=== PATIENT | female | born 1970 | race Caucasian/White ===

== ENCOUNTER 2017-12-19 13:37 | Inpatient (IN) | payer BC ==
[2017-12-19] MEDS ORDERED: MORPHINE SULFATE 2 MG INJ IV ONE (13:55)
[2017-12-19] MEDS ORDERED: Lomotil PO ONE (13:56)
[2017-12-19] MEDS ORDERED: Sodium Chloride 0.9% 1000 ML 1,000 ML IV SCH (14:00)
[2017-12-19] MEDS ORDERED: Lomotil ONE (14:03)
[2017-12-19] MEDS ORDERED: Sodium Chloride 0.9% 1000 ML 0 ML ONE (14:04)
[2017-12-19] MEDS ORDERED: MORPHINE SULFATE 2 MG INJ ONE (14:04)
[2017-12-19 14:09] LABS: BASOPHIL % 0.4 % (0.0-0.4); Basophil (Absolute #) 0.06 (0-0.4); Eosinophil % 1.8 % (0.00-5.0); Eosinophil (Absolute #) 0.26 (0-0.5); Granulocyte Absolute (ANC) 9.11 (1.4-6.9); Granulocytes % 63.5 % (36.0-66.0); Hematocrit 31.3 % (35-47); Hemoglobin 10.5 gm/dl (12.0-16.0); Lymphocyte (Absolute #) 3.76 (1.0-4.6); Lymphocytes % 26.2 % (24.0-44.0); Mean Corpuscular Hemoglobin 28.8 pg (26-32); Mean Corpuscular Hgb Concent. 33.5 g/dl (32-36); Mean Platelet Volume 9.7 fl (6-9.5); Monocyte (Absolute #) 1.16 (0.0-1.3); Monocytes % 8.1 % (0.0-12.0); Platelet Count 625 K/mm3 (150-450); Red Blood Count 3.64 M/mm3 (4.1-5.4); Red Cell Distribution Width 14.2 % (11.5-14.0); White Blood Count 14.4 K/mm3 (4.0-10.5)
--- NOTE | 2017-12-19 14:10 | ERPHSYRPT ---
- History of Present Illness Time Seen by Provider: 12/19/17 13:40 Source: patient, family Exam Limitations: no limitations Patient Subjective Stated Complaint: Pt states "I am on doxycycline again for lyme disease and I am swelling really bad and I am having horrible diarrhea. I called my family doctor and she told me to just come to the ER and get evaluated for admission." Triage Nursing Assessment: Pt alert and oriented X 3, skin pwd. PT has right leg amputaion and uses a wheeled scooter for ambulating. Pt face is swollen, arms and hands has swelling, stump is swelling. No apparent respiratory distress. Physician History: patient developed diffuse swelling while on Vibramycin being treated for Lyme disease starting in May 2017; Swelling imporved after a time. Was on Nystatin too. Stopped meds in October as improved. Symptoms of lyme disease returned at end of November so restarted Vibramycin last week of November but not the Nystatin. Swelling returned after two days on the Vibramycin and has persisted. About the same time she developed frequent loose mushy diarrhea. no blood. a small 1- 2 cup stool every 30-45 minutes; no fever or chills; no travel or exposures; no prior hx. 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 Voiding ok; Breathin ok; some mild abdominal discomfort, but no pain Timing/Duration: week(s) (1), intermittent, gradual onset, worse Severity: severe Modifying Factors: Improves With: nothing Associated Symptoms: weakness, other (diarrhea only) Allergies/Adverse Reactions: levofloxacin [From Levaquin] Allergy (Verified 06/15/12 20:40) Home Medications: Ascorbic Acid 500 mg [Vitamin C 500 MG] 500 mg PO .UNKNOWN 07/12/16 [ History] Ergocalciferol (Vitamin D2) [Vitamin D2] 50,000 unit PO Q7D 07/12/16 [History] Hydrocodone/APAP 10/325 mg [[place] 10/325 MG Tablet] 1 tab PO Q4H PRN PRN 07/12/16 [History] Insulin Aspart [Novolog Flexpen] 0 unit SQ .PRN 07/12/16 [History] Insulin Glargine,Hum.rec.anlog [Toujeo Solostar] 10 unit SQ HS 07/12/16 [History ] Multivitamin [Multivitamins] 1 each PO BID 07/12/16 [History] Omeprazole 20 MG [Prilosec 20 mg] 20 mg PO BID 07/12/16 [History] Dextroamphetamine/Amphetamine [Adderall 20 mg Tablet] 20 mg PO DAILY 12/19/17 [ History] Furosemide 20 mg [Lasix 20 mg] 20 mg PO DAILY 12/19/17 [History] Hx Tetanus, Diphtheria Vaccination/Date Given: No Hx Influenza Vaccination/Date Given: Yes Hx Pneumococcal Vaccination/Date Given: No Immunizations Up to Date: Yes - Review of Systems Constitutional: Malaise, Weakness Eyes: No Symptoms Ears, Nose, & Throat: No Symptoms Respiratory: No Cough, No Dyspnea, No Wheezing Cardiac: Edema, No Chest Pain, No Palpitations, No Syncope Abdominal/Gastrointestinal: Diarrhea, No Abdominal Pain, No Nausea, No Vomiting , No Constipation, No Hematemesis, No Hematochezia, No Melena Genitourinary Symptoms: No Symptoms Musculoskeletal: No Symptoms Skin: No Symptoms Neurological: No Symptoms Psychological: No Symptoms Endocrine: No Symptoms Hematologic/Lymphatic: No Symptoms Immunological/Allergic: No Symptoms - Past Medical History Pertinent Past Medical History: Yes Neurological History: No Pertinent History Endocrine Medical History: Diabetes Type I, Hypothyroidism - Past Surgical History Past Surgical History: Yes Musculoskeletal: Orthopedic Surgery Female Surgical History: Section, Tubal Ligation Other Surgical History: BARIATRIC SURGERY,FOOT SURGERY, RETINA SURGERY, amputation of right leg just below the knee. - Social History Smoking Status: Never smoker Exposure to second hand smoke: No Alcohol Use: None Drug Use: none Patient Lives Alone: No Significant Family History: diabetes - Female History Hx Last Menstrual Period: 2010 ablasion Hx Now: No - Nursing Vital Signs Nursing Vital Signs: Initial Vital Signs Temperature 98.1 F 12/19/17 13:42 Pulse Rate 106 H 12/19/17 13:42 Respiratory Rate 18 12/19/17 13:42 Blood Pressure 169/98 12/19/17 13:42 O2 Sat by Pulse Oximetry 99 12/19/17 13:42 Pain Scale Pain Intensity 0 - Physical Exam General Appearance: moderate distress, alert Eye Exam: PERRL/EOMI, eyes nml inspection, other (pale conjunctiva) Ears, Nose, Throat Exam: normal ENT inspection, TMs normal, pharynx normal, moist mucous membranes Neck Exam: normal inspection, non-tender, supple, full range of motion, No meningismus, No JVD Respiratory Exam: normal breath sounds, lungs clear, airway intact, No chest tenderness, No respiratory distress, No crackles/rales, No rhonchi, No wheezing Cardiovascular Exam: regular rate/rhythm, normal heart sounds, normal peripheral pulses, tachycardia (106), capillary refill <2 sec, edema, No murmur Gastrointestinal/Abdomen Exam: soft, normal bowel sounds, No tenderness, No distention, No mass, No guarding, No rebound, No organomegaly Pelvic Exam: not done Rectal Exam: normal exam, normal rectal tone, other (small amount greyish soft stool), No mass, No hemorrhoids, No black stool, No blood Back Exam: normal inspection, normal range of motion, No CVA tenderness, No rash Extremity Exam: normal inspection, normal range of motion, pedal edema, swelling (hands and face), other (DK amputation rle), No nathaniel's sign Neurologic Exam: alert, oriented x 3, cooperative, hotel clerk II-XII nml as tested, normal mood/affect Skin Exam: normal color, warm, dry, No rash, No petechiae, No jaundice, No cyanosis SpO2 Interpretation: normal SpO2: 99 Oxygen Delivery: Room Air - Course Nursing assessment & vital signs reviewed: Yes - Radiology Exams Chest X-ray Interpretation: Interpreted by me, Negative, No Pneumonia, No Pneumothorax , Nml Heart Size, No Infiltrates Ordered Tests: Active Orders 24 hr Category Date Time Status Up With Assistance ROUTINE Activity 12/19/17 15:53 Ordered Call Admit Doctor for Orders ON ADMISSION Care 12/19/17 15:55 Ordered Code Status Order ROUTINE Care 12/19/17 15:53 Ordered Fall Protocol ROUTINE Care 12/19/17 15:55 Ordered IV Care Q6H Care 12/19/17 15:53 Ordered IV Insertion STAT Care 12/19/17 13:55 Active NPO (ED) STAT Care 12/19/17 13:[address] in Observation ROUTINE Care 12/19/17 15:54 Ordered Re-Check Vital Signs STAT Care 12/19/17 13:55 Active Luis Menchaca, Gordon ROUTINE Care 12/19/17 15:53 Ordered Weight,Daily 0600 Care 12/19/17 15:53 Ordered 1800 Calorie ADA Diet 12/19/17 Dinner Ordered CHEST 1 VIEW (PORTABLE) Stat Exams 12/19/17 15:43 Taken CBC W DIFF Stat Lab 12/19/17 14:00 Completed CMP Stat Lab 12/19/17 14:00 Completed Occult Blood,Stool Other Stat Lab 12/19/17 14:20 Completed Transfer Order Routine Transfer 12/19/17 Ordered Medication Summary Generic Name Dose Route Start Last Admin Trade Name Freq PRN Reason Stop Dose Admin Sodium Chloride 1,000 mls @ 100 mls/hr 12/19/17 14:00 Sodium Chloride 0.9% 1000 Ml IV 01/18/18 13:59 .Q10H CHARI Lactated Ringer's 1,000 mls @ 100 mls/hr 12/19/17 14:30 12/19/17 14:27 Lactated Ringers IV 01/18/18 14:29 100 mls/hr .Q10H CHARI Administration Discontinued Medications Generic Name Dose Route Start Last Admin Trade Name Freq PRN Reason Stop Dose Admin Diphenoxylate HCl/Atropine 1 tablet 12/19/17 13:56 12/19/17 14:20 Lomotil PO 12/19/17 13:57 1 tablet STAT ONE Administration Diphenoxylate HCl/Atropine Confirm 12/19/17 14:03 Lomotil Administered 12/19/17 14:04 Dose 1 tablet .ROUTE .STK-MED ONE Morphine Sulfate 2 mg 12/19/17 13:55 12/19/17 14:28 Morphine Sulfate 2 Mg Inj IV 12/19/17 13:56 2 mg STAT ONE Administration Morphine Sulfate Confirm 12/19/17 14:04 Morphine Sulfate 2 Mg Inj Administered 12/19/17 14:05 Dose 2 mg .ROUTE .STK-MED ONE Lab/Rad Data: Laboratory Result Diagrams 12/19/17 14:00 12/19/17 14:00 Laboratory Results 12/19/17 12/19/17 12/19/17 Range/Units 14:20 14:20 14:00 WBC (4.0-10.5) K/mm3 RBC (4.1-5.4) M/mm3 Hgb (12.0-16.0) gm/dl Hct (35-47) % MCV (78-100) fl MCH (26-32) pg MCHC (32-36) g/dl RDW (11.5-14.0) % Plt Count (150-450) K/mm3 MPV (6-9.5) fl Gran % (36.0-66.0) % Eos # (Auto) (0-0.5) Absolute Lymphs (auto) (1.0-4.6) Absolute Monos (auto) (0.0-1.3) Lymphocytes % (24.0-44.0) % Monocytes % (0.0-12.0) % Eosinophils % (0.00-5.0) % Basophils % (0.0-0.4) % Absolute Granulocytes (1.4-6.9) Basophils # (0-0.4) Sodium 137 (137-145) mmol/L Potassium 2.9 L* (3.5-5.1) mmol/L Chloride 100 (98-107) mmol/L Carbon Dioxide 31 H (22-30) mmol/L Anion Gap 9.0 (5-15) MEQ/L BUN 10 (7-17) mg/dL Creatinine 1.00 (0.52-1.04) mg/dL Estimated GFR > 60.0 ML/MIN Glucose 228 H (74-106) mg/dL Calcium 8.0 L (8.4-10.2) mg/dL Total Bilirubin 0.20 (0.2-1.3) mg/dL AST 24 (14-36) U/L ALT 36 H (0-35) U/L Alkaline Phosphatase 327 H (38-126) U/L Serum Total Protein 5.2 L (6.3-8.2) g/dL Albumin 2.0 L (3.5-5.0) g/dL Stool Occult Blood NEGATIVE (Negative) Stl C. diff Tox B Gene NEGATIVE (NEGATIVE) C.difficile 027-NAP1-B1 PRESUMPTIVE NEGATIVE (NEGATIVE) 12/19/17 Range/Units 14:00 WBC 14.4 H (4.0-10.5) K/mm3 RBC 3.64 L (4.1-5.4) M/mm3 Hgb 10.5 L (12.0-16.0) gm/dl Hct 31.3 L (35-47) % MCV 86.0 (78-100) fl MCH 28.8 (26-32) pg MCHC 33.5 (32-36) g/dl RDW 14.2 H (11.5-14.0) % Plt Count 625 H (150-450) K/mm3 MPV 9.7 H (6-9.5) fl Gran % 63.5 (36.0-66.0) % Eos # (Auto) 0.26 (0-0.5) Absolute Lymphs (auto) 3.76 (1.0-4.6) Absolute Monos (auto) 1.16 (0.0-1.3) Lymphocytes % 26.2 (24.0-44.0) % Monocytes % 8.1 (0.0-12.0) % Eosinophils % 1.8 (0.00-5.0) % Basophils % 0.4 (0.0-0.4) % Absolute Granulocytes 9.11 H (1.4-6.9) Basophils # 0.06 (0-0.4) Sodium (137-145) mmol/L Potassium (3.5-5.1) mmol/L Chloride (98-107) mmol/L Carbon Dioxide (22-30) mmol/L Anion Gap (5-15) MEQ/L BUN (7-17) mg/dL Creatinine (0.52-1.04) mg/dL Estimated GFR ML/MIN Glucose (74-106) mg/dL Calcium (8.4-10.2) mg/dL Total Bilirubin (0.2-1.3) mg/dL AST (14-36) U/L ALT (0-35) U/L Alkaline Phosphatase (38-126) U/L Serum Total Protein (6.3-8.2) g/dL Albumin (3.5-5.0) g/dL Stool Occult Blood (Negative) Stl C. diff Tox B Gene (NEGATIVE) C.difficile 027-NAP1-B1 (NEGATIVE) reviewed - Progress Progress: improved (clinically with meds and IV fluids), re-examined (after meds ) Progress Note: 12/19/17 14:15 will start IV, check labs, monitor and recheck 12/19/17 14:15 at bedsdie 12/19/17 15:49 family at bedside; feeling better; no more diarrhea; Dr Angela consulted and will admit to OBs; C diff neg; ; elevated wBC at 14; BS 228; lytes and renal fx ok except low K+ 2.9; On LR IV fluids for low K+;stool neg fro blood; patient and family informed of admission and results Discussed with Dr.: Angela (consulted and will be placed in OBS) Counseled pt/family regarding: lab results, diagnosis, need for follow-up, rad results - Departure Time of Disposition: 15:52 Departure Disposition: Observation Clinical Impression: Hypokalemic alkalosis due to diarrhea, Diarrhea due to drug, Medication reaction, Lyme disease Condition: Fair Critical Care Time: No Referrals: BERNARD ANGELA [Primary Care Provider] -
[2017-12-19] MEDS: Lactated Ringers 1,000 ML IV SCH ×2 (14:27→23:56)
[2017-12-19 14:29] LABS: ALKALINE PHOSPHATASE 327 U/L (38-126); BLOOD UREA NITROGEN 10 mg/dL (7-17); CHLORIDE 100 mmol/L (98-107); Carbon Dioxide 31 mmol/L (22-30); Glucose 228 mg/dL (74-106); SGOT/AST 24 U/L (14-36); SGPT/ALT 36 U/L (0-35); SODIUM 137 mmol/L (137-145); Total Protein 5.2 g/dL (6.3-8.2)
[2017-12-19 14:37] LABS: Potassium 2.9 mmol/L (3.5-5.1)
[2017-12-19 15:40] LABS: 027 TOX PROD PRESUMPTIVE NEGATIVE (NEGATIVE); TOXIGENIC C. DIFF ORG NEGATIVE (NEGATIVE)
--- NOTE | 2017-12-19 16:23 | XRAY ---
Indication: Fluid retention. Diarrhea. Comparison: June 15, 2012. Portable chest again demonstrates normal heart and lungs. Bony thorax intact. No new/acute findings.
[2017-12-19] MEDS ORDERED: K-LYTE 25 MEQ PO ONE (17:27)
[2017-12-19] MEDS: Norco 10/325 MG Tablet PO PRN (19:42)
[2017-12-19] MEDS: NovoLOG Insulin SQ PRN (21:16)
[2017-12-19] MEDS: Protonix 40MG Tablet PO SCH (21:16)
[2017-12-19 21:55] LABS: Potassium 3.9 mmol/L (3.5-5.1)
[2017-12-20] MEDS: NovoLOG Insulin SQ PRN ×4 (00:40→21:42)
[2017-12-20] MEDS: Norco 10/325 MG Tablet PO PRN ×5 (00:51→23:33)
[2017-12-20] MEDS: TYLENOL 325 MG PO PRN (02:56)
[2017-12-20 05:56] LABS: Hematocrit 26.5 % (35-47); Hemoglobin 8.8 gm/dl (12.0-16.0); Mean Cell Volume 86.6 fl (78-100); Mean Corpuscular Hgb Concent. 33.2 g/dl (32-36); Mean Platelet Volume 9.8 fl (6-9.5); Platelet Count 518 K/mm3 (150-450); Red Blood Count 3.06 M/mm3 (4.1-5.4); White Blood Count 9.8 K/mm3 (4.0-10.5)
[2017-12-20 06:11] LABS: ANION GAP 5.6 MEQ/L (5-15); BLOOD UREA NITROGEN 10 mg/dL (7-17); CHLORIDE 103 mmol/L (98-107); Calcium 7.7 mg/dL (8.4-10.2); Carbon Dioxide 31 mmol/L (22-30); Creatinine 1 0.86 mg/dL (0.52-1.04); Glucose 149 mg/dL (74-106); Potassium 3.4 mmol/L (3.5-5.1); SODIUM 136 mmol/L (137-145)
[2017-12-20 06:12] LABS: Mean Corpuscular Hemoglobin 28.7 pg (26-32)
[2017-12-20] MEDS ORDERED: Norco 10/325 MG Tablet ONE (06:15)
[2017-12-20] MEDS: SYNTHROID 100 MCG PO SCH (07:36)
[2017-12-20] MEDS: SYNTHROID 75 MCG PO SCH (07:36)
--- NOTE | 2017-12-20 08:53 | PCM.HP ---
History of Present Illness - Chief Complaint Chief Complaint: HYPOKALEMIA 2.9 SENCONDARY TO DIARRHEA UNKNOWN CAUSE, LYME DISEASE, DMI History of Present Illness: is a 47 year old female pt of mine from [facility] with DM, s/p BKA on R, and Lyme disease who was admitted through the ER with diarrhea and weakness. She had been treated earlier in the summer with doxycycline for Lyme disease; she started having diarrhea and generalized swelling so stopped the antibiotic 1 week ago. She came to see me in office, was supposed to have labs and c. diff testing but was unable to complete due to weakness. Called the office yesterday c/o being ill and weak and was sent to ER. Found to have K 2.9 and was repleted. C. diff negative and was given lomotil with good relief; prior to that was having many stools in a day (kept a 5 gal bucket by her chair). This morning she is still swollen. Only abd pain is cramping with BMs. Has had several BMs this morning (has not had lomotil). Stool studies are pending. K+ is 3.4. - Review of Systems Constitutional: Weakness Cardiac: Edema (generalized) Abdominal/Gastrointestinal: Abdominal Pain, Diarrhea, Appetite Changes All Other Systems: Reviewed and Negative Medications & Allergies Home Medications: Home Medication List Ascorbic Acid 500 mg [Vitamin C 500 MG] 500 mg PO BID 07/12/16 [History Confirmed 12/19/17] Ergocalciferol (Vitamin D2) [Vitamin D2] 50,000 unit PO Q7D 07/12/16 [History Confirmed 12/19/17] Hydrocodone/APAP 10/325 mg [[place] 10/325 MG Tablet] 1 tab PO Q4H PRN PRN 07/12/16 [History Confirmed 12/19/17] Insulin Aspart [Novolog Flexpen] 0 unit SQ .PRN 07/12/16 [History Confirmed 12/29] Insulin Glargine,Hum.rec.anlog [Toujeo Solostar] 10 unit SQ HS 07/12/16 [ History Confirmed 12/19/17] Multivitamin [Multivitamins] 1 each PO DAILY 07/12/16 [History Confirmed ] Omeprazole 20 MG [Prilosec 20 mg] 20 mg PO BID 07/12/16 [History Confirmed 12/19] Cyanocobalamin (Vitamin B-12) [Vitamin B-12] 5,000 mcg PO BID 12/19/17 [History Confirmed 12/19/17] Dextroamphetamine/Amphetamine [Adderall 20 mg Tablet] 20 mg PO TID 12/19/17 [ History Confirmed 12/19/17] Furosemide 20 mg [Lasix 20 mg] 20 mg PO DAILY 12/19/17 [History Confirmed 12/19/17] Levothyroxine Sodium [Synthroid] 175 mcg PO 0600 12/19/17 [History Confirmed 12/29] Pyridoxine HCl [Vitamin B-6] 250 mg PO BID 12/19/17 [History Confirmed 12/19/17] Allergies/Adverse Reactions: Allergies Allergy/AdvReac Type Severity Reaction Status Date / Time levofloxacin [From Levaquin] Allergy Verified 12/19/17 17:13 - Past Medical History Past Medical History: Yes Neurological History: No Pertinent History ENT History: No Pertinent History Cardiac History: Other Respiratory History: No Pertinent History Endocrine Medical History: Diabetes Type I, Hypothyroidism Musculoskelatal History: Arthritis, Fractures, Osteoarthritis GI Medical History: No Pertinent History History: No Pertinent History Pyscho-Social History: Attention Deficit Disorder Reproductive Disorders: No Pertinent History Comment: LYMES DISEASE, HEART MURMUR - Female History Hx Last Menstrual Period: 2010 ablasion Are you now?: No - Past Surgical History Past Surgical History: Yes Neuro Surgical History: No Pertinent History Cardiac History: No Pertinent History Respiratory Surgery: No Pertinent History GI Surgical History: No Pertinent History Genitourinary Surgical Hx: No Pertinent History Musculskeletal Surgical Hx: Orthopedic Surgery Female Surgical History: Section, Tubal Ligation Other Surgical History: BARIATRIC SURGERY,FOOT SURGERY, RETINA SURGERY, amputation of right leg just below the knee. - Social History Smoking Status: Never smoker Exposure to second hand smoke: No Alcohol: None Drug Use: none Significant Family History: diabetes - Physical Exam Vital Signs: Vital Signs - 24 hr Temp Pulse Resp BP Pulse Ox 12/20/17 08:00 18 12/20/17 07:08 97.8 F 94 H 18 141/87 99 12/20/17 04:10 98.2 F 102 H 18 163/91 98 12/19/17 23:30 98.4 F 101 H 20 154/90 98 12/19/17 19:31 98.3 F 117 H 18 175/100 100 12/19/17 16:40 98.0 F 99 H 18 161/92 100 12/19/17 15:58 99 12/19/17 15:28 98.1 F 94 H 18 146/92 95 12/19/17 14:43 100 H 18 146/94 100 12/19/17 14:42 100 H 18 146/94 100 12/19/17 13:42 98.1 F 106 H 18 169/98 99 General Appearance: no apparent distress, alert, other (generalized facial edema , mild-mod) Neurologic Exam: oriented x 3, cooperative Eye Exam: eyes nml inspection, No photophobia Ears, Nose, Throat Exam: moist mucous membranes Neck Exam: normal inspection Respiratory Exam: normal breath sounds, lungs clear, No crackles/rales, No rhonchi, No wheezing Cardiovascular Exam: regular rate/rhythm, normal heart sounds, No murmur Gastrointestinal/Abdomen Exam: soft, normal bowel sounds, No tenderness, No distention, No mass, No guarding, No rebound Back Exam: normal inspection, No rash Extremity Exam: other (R BKA; no pitting edema in rest of leg. LLE 1+ edema. LUE 2+ edema L hand) Skin Exam: normal color, warm, dry, No rash Results - Labs Lab/Micro Results: Accuchecks Date 12/20/17 Time 07:30 Accucheck Value: 155 Accucheck Value: 202 Accucheck Value: 264 Accucheck Value: 219 Lab Results-Last 24 Hours 12/19/17 12/19/17 12/19/17 Range/Units 14:00 14:00 14:20 WBC 14.4 H (4.0-10.5) K/mm3 RBC 3.64 L (4.1-5.4) M/mm3 Hgb 10.5 L (12.0-16.0) gm/dl Hct 31.3 L (35-47) % MCV 86.0 (78-100) fl MCH 28.8 (26-32) pg MCHC 33.5 (32-36) g/dl RDW 14.2 H (11.5-14.0) % Plt Count 625 H (150-450) K/mm3 MPV 9.7 H (6-9.5) fl Gran % 63.5 (36.0-66.0) % Eos # (Auto) 0.26 (0-0.5) Absolute Lymphs (auto) 3.76 (1.0-4.6) Absolute Monos (auto) 1.16 (0.0-1.3) Lymphocytes % 26.2 (24.0-44.0) % Monocytes % 8.1 (0.0-12.0) % Eosinophils % 1.8 (0.00-5.0) % Basophils % 0.4 (0.0-0.4) % Absolute Granulocytes 9.11 H (1.4-6.9) Basophils # 0.06 (0-0.4) Sodium 137 (137-145) mmol/L Potassium 2.9 L* (3.5-5.1) mmol/L Chloride 100 (98-107) mmol/L Carbon Dioxide 31 H (22-30) mmol/L Anion Gap 9.0 (5-15) MEQ/L BUN 10 (7-17) mg/dL Creatinine 1.00 (0.52-1.04) mg/dL Estimated GFR > 60.0 ML/MIN Glucose 228 H (74-106) mg/dL Calcium 8.0 L (8.4-10.2) mg/dL Magnesium (1.6-2.3) mg/dL Total Bilirubin 0.20 (0.2-1.3) mg/dL AST 24 (14-36) U/L ALT 36 H (0-35) U/L Alkaline Phosphatase 327 H (38-126) U/L Serum Total Protein 5.2 L (6.3-8.2) g/dL Albumin 2.0 L (3.5-5.0) g/dL Stool Occult Blood NEGATIVE (Negative) Stl C. diff Tox B Gene (NEGATIVE) C.difficile 027-NAP1-B1 (NEGATIVE) 12/19/17 12/19/17 12/20/17 Range/Units 14:20 21:30 05:35 WBC 9.8 (4.0-10.5) K/mm3 RBC 3.06 L (4.1-5.4) M/mm3 Hgb 8.8 L (12.0-16.0) gm/dl Hct 26.5 L (35-47) % MCV 86.6 (78-100) fl MCH 28.7 (26-32) pg MCHC 33.2 (32-36) g/dl RDW 14.0 (11.5-14.0) % Plt Count 518 H (150-450) K/mm3 MPV 9.8 H (6-9.5) fl Gran % (36.0-66.0) % Eos # (Auto) (0-0.5) Absolute Lymphs (auto) (1.0-4.6) Absolute Monos (auto) (0.0-1.3) Lymphocytes % (24.0-44.0) % Monocytes % (0.0-12.0) % Eosinophils % (0.00-5.0) % Basophils % (0.0-0.4) % Absolute Granulocytes (1.4-6.9) Basophils # (0-0.4) Sodium (137-145) mmol/L Potassium 3.9 (3.5-5.1) mmol/L Chloride (98-107) mmol/L Carbon Dioxide (22-30) mmol/L Anion Gap (5-15) MEQ/L BUN (7-17) mg/dL Creatinine (0.52-1.04) mg/dL Estimated GFR ML/MIN Glucose (74-106) mg/dL Calcium (8.4-10.2) mg/dL Magnesium 1.7 (1.6-2.3) mg/dL Total Bilirubin (0.2-1.3) mg/dL AST (14-36) U/L ALT (0-35) U/L Alkaline Phosphatase (38-126) U/L Serum Total Protein (6.3-8.2) g/dL Albumin (3.5-5.0) g/dL Stool Occult Blood (Negative) Stl C. diff Tox B Gene NEGATIVE (NEGATIVE) C.difficile 027-NAP1-B1 PRESUMPTIVE NEGATIVE (NEGATIVE) 12/20/17 Range/Units 05:35 WBC (4.0-10.5) K/mm3 RBC (4.1-5.4) M/mm3 Hgb (12.0-16.0) gm/dl Hct (35-47) % MCV (78-100) fl MCH (26-32) pg MCHC (32-36) g/dl RDW (11.5-14.0) % Plt Count (150-450) K/mm3 MPV (6-9.5) fl Gran % (36.0-66.0) % Eos # (Auto) (0-0.5) Absolute Lymphs (auto) (1.0-4.6) Absolute Monos (auto) (0.0-1.3) Lymphocytes % (24.0-44.0) % Monocytes % (0.0-12.0) % Eosinophils % (0.00-5.0) % Basophils % (0.0-0.4) % Absolute Granulocytes (1.4-6.9) Basophils # (0-0.4) Sodium 136 L (137-145) mmol/L Potassium 3.4 L (3.5-5.1) mmol/L Chloride 103 (98-107) mmol/L Carbon Dioxide 31 H (22-30) mmol/L Anion Gap 5.6 (5-15) MEQ/L BUN 10 (7-17) mg/dL Creatinine 0.86 (0.52-1.04) mg/dL Estimated GFR > 60.0 ML/MIN Glucose 149 H (74-106) mg/dL Calcium 7.7 L (8.4-10.2) mg/dL Magnesium (1.6-2.3) mg/dL Total Bilirubin (0.2-1.3) mg/dL AST (14-36) U/L ALT (0-35) U/L Alkaline Phosphatase (38-126) U/L Serum Total Protein (6.3-8.2) g/dL Albumin (3.5-5.0) g/dL Stool Occult Blood (Negative) Stl C. diff Tox B Gene (NEGATIVE) C.difficile 027-NAP1-B1 (NEGATIVE) Accuchecks Date 12/20/17 Time 07:30 Accucheck Value: 155 Accucheck Value: 202 Accucheck Value: 264 Accucheck Value: 219 - Radiology Impressions Radiology Exams & Impressions: Radiology Procedures Category Date Time Status CHEST 1 VIEW (PORTABLE) Stat Exams 12/19/17 15:43 Completed Assessment/Plan (1) Diarrhea due to drug Current Visit: Yes Status: Acute Assessment & Plan: Will resume lomotil. Would like her to be without diarrhea, eating well and moving around well by herself prior to d/c home. Code(s): K52.1 - TOXIC GASTROENTERITIS AND COLITIS (2) Hypokalemia Current Visit: Yes Status: Acute Code(s): E87.6 - HYPOKALEMIA (3) Lyme disease Current Visit: Yes Status: Chronic Code(s): A69.20 - LYME DISEASE, UNSPECIFIED (4) Medication reaction Current Visit: Yes Status: Chronic Qualifiers: Encounter type: subsequent encounter Qualified Code(s): T50.905D - Adverse effect of unspecified drugs, medicaments and biological substances, subsequent encounter Code(s): T50.905A - ADVERSE EFFECT OF UNSP DRUG/MEDS/BIOL SUBST, INIT (5) Weakness Current Visit: Yes Status: Acute Assessment & Plan: consult PT Code(s): R53.1 - WEAKNESS (6) Diabetes mellitus Current Visit: Yes Status: Acute Qualifiers: Diabetes mellitus type: type 1 Diabetes mellitus complication status: with neurologic complications Diabetes mellitus complication detail: with polyneuropathy Qualified Code(s): 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 accucheckchristos ac/hs Code(s): E11.9 - TYPE 2 DIABETES MELLITUS WITHOUT COMPLICATIONS
[2017-12-20] MEDS: Lactated Ringers 1,000 ML IV SCH ×2 (09:43→18:58)
[2017-12-20] MEDS: Vitamin C 500 MG PO SCH ×2 (09:45→21:42)
[2017-12-20] MEDS: NON-FORMULARY ITEM (Dextroamphetamine/Amphetamine [Adderall 20 Mg Tablet] 20 MG) PO SCH ×3 (09:45→22:50)
[2017-12-20] MEDS: Protonix 40MG Tablet PO SCH ×2 (09:46→21:41)
[2017-12-20] MEDS: Vitamin B-12 500 MCG PO SCH ×2 (09:47→21:41)
[2017-12-20] MEDS: Vitamin B-6 (Pyridoxine) 100 MG PO SCH ×2 (09:48→21:41)
[2017-12-20] MEDS: Lomotil PO PRN ×2 (09:54→15:45)
[2017-12-20] MEDS ORDERED: PYRIDOXINE HCL 250 MG PO SCH (10:00)
[2017-12-20] MEDS ORDERED: CYANOCOBALAMIN 5000 MCG PO SCH (10:00)
[2017-12-20] MEDS: Zofran 4 MG/2 ML VIAL IV PRN ×2 (14:23→19:47)
[2017-12-20] MEDS ORDERED: NON-FORMULARY ITEM SQ SCH (22:00)
[2017-12-20] MEDS ORDERED: Lantus Insulin SQ SCH (22:00)
[2017-12-21] MEDS: Zofran 4 MG/2 ML VIAL IV PRN ×3 (01:13→12:35)
[2017-12-21] MEDS: Norco 10/325 MG Tablet PO PRN ×5 (03:44→22:31)
[2017-12-21] MEDS: Lactated Ringers 1,000 ML IV SCH ×2 (05:52→20:07)
[2017-12-21] MEDS: SYNTHROID 75 MCG PO SCH (05:52)
[2017-12-21] MEDS: SYNTHROID 100 MCG PO SCH (05:53)
[2017-12-21] MEDS ORDERED: NON-FORMULARY ITEM (Levothyroxine Sodium [Synthroid] 175 MCG) PO SCH (06:00)
--- NOTE | 2017-12-21 08:46 | PCM.NOTE ---
Date and Time: 12/21/17 0841 Subjective Assessment: Pt continues to have diarrhea, about a cup at a time of soft stools, with some watery stool. Feels bloated and uncomfortable, like she has a lot of gas. Feels like the rice and bananas are making her have gas, and she does not like the toast here. Would like a regular diet. - Review of Systems Constitutional: No Fever Abdominal/Gastrointestinal: Diarrhea, Other (bloating) Objective Exam General Appearance: no apparent distress, alert, other (facial edema, mild-mod) Neurologic Exam: oriented x 3, cooperative Skin Exam: normal color, warm, dry, No rash Ears, Nose, Throat Exam: moist mucous membranes Neck Exam: normal inspection Respiratory Exam: normal breath sounds, lungs clear, No crackles/rales, No rhonchi, No wheezing Cardiovascular Exam: regular rate/rhythm, normal heart sounds, No murmur Gastrointestinal/Abdomen Exam: soft, normal bowel sounds, distention (mild), No tenderness, No guarding, No rebound Extremity Exam: other (generalized edema, nonpitting, LE and LUE) OBJECTIVE DATA Vital Signs: Vital Signs - 24 hr Temp Pulse Resp BP Pulse Ox 12/21/17 08:00 102 H 18 142/80 99 12/21/17 04:00 98.7 F 107 H 18 150/90 99 12/21/17 00:30 98.4 F 113 H 18 128/80 98 12/20/17 19:33 98.7 F 106 H 18 161/85 99 12/20/17 16:00 98.6 F 111 H 18 139/93 96 12/20/17 12:00 98.5 F 99 H 20 155/89 100 12/20/17 11:43 18 Pain Assessment - Last Documented Pain Intensity 8 Pain Scale Used 0-10 Pain Scale Intake and Output: Intake & Output 12/18/17 12/19/17 12/20/17 12/21/17 11:59 11:59 11:59 11:59 Intake Total 3109 3166 Output Total 1500 200 Balance 1609 2966 Weight 81.8 kg 84.4 kg Lab Results: Accuchecks Date 12/20/17 Date 12/20/17 Time 16:30 Time 11:30 Accucheck Value: 113 Accucheck Value: 338 Accucheck Value: 186 Accucheck Value: 230 Lab Results-Last 24 Hours 12/20/17 Range/Units 05:35 Hemoglobin A1c 9.49 H (4.5-6.0) % Radiology Exams: Radiology Procedures Category Date Time Status ABDOMEN AND PELVIS W CONTRAST [CT] Routine Exams 12/21/17 08:40 Ordered CHEST 1 VIEW (PORTABLE) Stat Exams 12/19/17 15:43 Completed Assessment/Plan (1) Diarrhea due to drug Current Visit: Yes Status: Acute Onset Date: ~12/20/17 Assessment & Plan: Likely; however will check CT abd/pelvis as the diarrhea is not improving. Worry for colitis. Code(s): K52.1 - TOXIC GASTROENTERITIS AND COLITIS (2) Hypokalemia Current Visit: Yes Status: Resolved Onset Date: ~12/20/17 Code(s): E87.6 - HYPOKALEMIA (3) Lyme disease Current Visit: Yes Status: Chronic Code(s): A69.20 - LYME DISEASE, UNSPECIFIED (4) Medication reaction Current Visit: Yes Status: Chronic Qualifiers: Encounter type: subsequent encounter Qualified Code(s): T50.905D - Adverse effect of unspecified drugs, medicaments and biological substances, subsequent encounter Code(s): T50.905A - ADVERSE EFFECT OF UNSP DRUG/MEDS/BIOL SUBST, INIT (5) Weakness Current Visit: Yes Status: Acute Onset Date: ~12/20/17 Code(s): R53.1 - WEAKNESS (6) Diabetes mellitus Current Visit: Yes Status: Chronic Qualifiers: Diabetes mellitus type: type 1 Diabetes mellitus complication status: with neurologic complications Diabetes mellitus complication detail: with polyneuropathy Qualified Code(s): E10.42 - Type 1 diabetes mellitus with diabetic polyneuropathy Code(s): E11.9 - TYPE 2 DIABETES MELLITUS WITHOUT COMPLICATIONS
[2017-12-21] MEDS: Mylicon 80MG PO PRN ×4 (08:51→21:44)
[2017-12-21] MEDS: Protonix 40MG Tablet PO SCH ×2 (11:07→21:44)
[2017-12-21] MEDS: Acidophilus TABLET PO SCH (11:07)
[2017-12-21] MEDS: Vitamin C 500 MG PO SCH ×2 (11:07→21:44)
[2017-12-21] MEDS: Vitamin B-6 (Pyridoxine) 100 MG PO SCH ×2 (11:08→21:46)
[2017-12-21] MEDS: Vitamin B-12 500 MCG PO SCH ×2 (11:09→21:45)
[2017-12-21 11:21] LABS: BASOPHIL % 0.3 % (0.0-0.4); Basophil (Absolute #) 0.04 (0-0.4); Eosinophil % 2.1 % (0.00-5.0); Granulocytes % 62.7 % (36.0-66.0); Hematocrit 30.1 % (35-47); Lymphocyte (Absolute #) 3.77 (1.0-4.6); Lymphocytes % 26.8 % (24.0-44.0); Mean Cell Volume 87.5 fl (78-100); Mean Corpuscular Hgb Concent. 33.2 g/dl (32-36); Mean Platelet Volume 9.8 fl (6-9.5); Monocyte (Absolute #) 1.14 (0.0-1.3); Monocytes % 8.1 % (0.0-12.0); Platelet Count 585 K/mm3 (150-450); Red Blood Count 3.44 M/mm3 (4.1-5.4); Red Cell Distribution Width 14.3 % (11.5-14.0); White Blood Count 14.1 K/mm3 (4.0-10.5)
--- NOTE | 2017-12-21 11:32 | XRAY ---
Indication: Lower abdominal pain, bloating, and diarrhea. Multiple contiguous axial images obtained through the abdomen and pelvis using 80 cc Isovue 370 contrast only. Comparison: None There is diffuse anasarca. Lung bases are clear. Heart is not enlarged. Previous gastric bypass surgery. Noncontrasted stomach and bowel loops appear nonobstructed. Appendix not seen. Mild diffuse scattered colonic fecal debris throughout. Minimal/mild colonic bowel wall thickening, especially hepatic flexure either from incomplete distention versus underlying colitis. Small abdominal and pelvic ascites. No walled off fluid collection or free air. Gallbladder is moderately distended without gallstones or biliary distention. There are 2 splenic cysts, largest measuring 2.4 cm. 8 mm left mid renal angiomyolipoma. Remaining liver, gallbladder, pancreas, spleen, adrenal glands, kidneys, ureters, bladder, and uterus appear unremarkable. Minimal aortoiliac calcifications. No AAA or pathologic retroperitoneal lymphadenopathy. Osseous structures intact. Small fatty umbilical hernia. No other ventral or inguinal hernias. Impression: 1. Diffuse anasarca and small abdomen/pelvic ascites without cardiomegaly. 2. Mild fecal stasis without obstruction. Also colonic wall thickening either incomplete distention versus colitis. 3. Distended gallbladder without gallstones. Gallbladder sonogram may yield further information if clinically warranted. 4. Incidental splenic cysts, tiny left renal angiomyolipoma, and small fatty umbilical hernia. CT DI 22.01
[2017-12-21 11:42] LABS: ALBUMIN 1.8 g/dL (3.5-5.0); ALKALINE PHOSPHATASE 264 U/L (38-126); ANION GAP 7.9 MEQ/L (5-15); BLOOD UREA NITROGEN 8 mg/dL (7-17); CHLORIDE 104 mmol/L (98-107); Calcium 7.8 mg/dL (8.4-10.2); Carbon Dioxide 30 mmol/L (22-30); Creatinine 1 0.82 mg/dL (0.52-1.04); Glucose 64 mg/dL (74-106); Potassium 3.4 mmol/L (3.5-5.1); SGOT/AST 32 U/L (14-36); SGPT/ALT 36 U/L (0-35); SODIUM 138 mmol/L (137-145); Total Protein 4.9 g/dL (6.3-8.2)
[2017-12-21] MEDS: NON-FORMULARY ITEM (Dextroamphetamine/Amphetamine [Adderall 20 Mg Tablet] 20 MG) PO SCH ×3 (12:02→21:47)
[2017-12-21] MEDS ORDERED: Glutose 15 GM ORAL GEL PO PRN (12:20)
[2017-12-21] MEDS ORDERED: GlucaGen 1 MG IM PRN (12:20)
[2017-12-21] MEDS ORDERED: D50W 50 ml Abboject IV PRN (12:20)
[2017-12-21] MEDS: FLAGYL 500 MG IVPB 500 MG/100 ML BAG IV SCH ×3 (12:36→23:34)
[2017-12-21 12:43] LABS: Source: Feces
[2017-12-21] MEDS ORDERED: [UNRECOGNIZED DRUG - OTHER] IV SCH (16:30)
[2017-12-21] MEDS ORDERED: DEXTROSE 5% IV SCH (16:30)
[2017-12-21] MEDS ORDERED: Lasix 40 MG/4 ML IV ONE (18:05)
[2017-12-21 18:09] LABS: Appearance CLEAR (CLEAR); Leukocyte Esterase TRACE (NEGATIVE)
[2017-12-21 18:10] LABS: Bacteria FEW /HPF (NEGATIVE); Bilirubin NEGATIVE (NEGATIVE); Blood NEGATIVE Ery/ul (0-5); Epithelial Cells MODERATE /HPF (FEW); Glucose NEGATIVE (NEGATIVE); Ketones NEGATIVE (NEGATIVE); Mucus SLIGHT /HPF (NEGATIVE); Nitrite NEGATIVE (NEGATIVE); Protein,Urine Dip 30 (Negative); Urobilinogen NORMAL mg/dL (0-1)
[2017-12-21] MEDS: Lomotil PO PRN ×2 (18:23→21:54)
[2017-12-21] MEDS: PATIENT OWN MEDICATION SQ SCH (21:45)
--- NOTE | 2017-12-21 21:50 | XRAY ---
Indication: Distended gallbladder on same-day CT. Two-dimensional gallbladder sonogram performed. Comparison: None Gallbladder is moderately distended with moderate sludge in the dependent portion mixed with tiny gallstones/gravel. No abnormal gallbladder wall thickening or pericholecystic fluid. Common bile duct measures 8.1 mm. No intrahepatic biliary distention. Remaining visualized portions of the liver, pancreas, and right kidney appear sonographically unremarkable. Right kidney measures 10.3 cm in length. No ascites. Impression: Distended gallbladder with intraluminal sludge and tiny gallstones/gravel. Negative for acute cholecystitis. Borderline prominent common bile duct.
[2017-12-22] MEDS: NON-FORMULARY ITEM (Dextroamphetamine/Amphetamine [Adderall 20 Mg Tablet] 20 MG) PO SCH ×4 (00:10→21:40)
[2017-12-22] MEDS: Zofran 4 MG/2 ML VIAL IV PRN ×4 (03:02→23:09)
[2017-12-22] MEDS: Norco 10/325 MG Tablet PO PRN ×4 (03:02→23:01)
[2017-12-22 05:42] LABS: BASOPHIL % 0.5 % (0.0-0.4); Basophil (Absolute #) 0.05 (0-0.4); Eosinophil % 3.4 % (0.00-5.0); Eosinophil (Absolute #) 0.33 (0-0.5); Granulocyte Absolute (ANC) 5.51 (1.4-6.9); Granulocytes % 56.4 % (36.0-66.0); Hematocrit 28.1 % (35-47); Hemoglobin 9.2 gm/dl (12.0-16.0); Lymphocyte (Absolute #) 3.11 (1.0-4.6); Lymphocytes % 31.9 % (24.0-44.0); Mean Cell Volume 88.1 fl (78-100); Mean Corpuscular Hemoglobin 28.8 pg (26-32); Mean Corpuscular Hgb Concent. 32.7 g/dl (32-36); Mean Platelet Volume 10.1 fl (6-9.5); Monocyte (Absolute #) 0.76 (0.0-1.3); Monocytes % 7.8 % (0.0-12.0); Platelet Count 552 K/mm3 (150-450); Red Blood Count 3.19 M/mm3 (4.1-5.4); Red Cell Distribution Width 14.5 % (11.5-14.0); White Blood Count 9.8 K/mm3 (4.0-10.5)
[2017-12-22] MEDS: SYNTHROID 75 MCG PO SCH (05:48)
[2017-12-22] MEDS: SYNTHROID 100 MCG PO SCH (05:48)
[2017-12-22] MEDS: Lactated Ringers 1,000 ML IV SCH (05:51)
[2017-12-22] MEDS: FLAGYL 500 MG IVPB 500 MG/100 ML BAG IV SCH ×4 (05:52→23:00)
[2017-12-22 06:06] LABS: ALBUMIN 1.6 g/dL (3.5-5.0); ALKALINE PHOSPHATASE 227 U/L (38-126); ANION GAP 8.6 MEQ/L (5-15); BLOOD UREA NITROGEN 7 mg/dL (7-17); CHLORIDE 103 mmol/L (98-107); Calcium 7.5 mg/dL (8.4-10.2); Carbon Dioxide 27 mmol/L (22-30); Creatinine 1 0.81 mg/dL (0.52-1.04); Glucose 159 mg/dL (74-106); Potassium 3.5 mmol/L (3.5-5.1); SGOT/AST 31 U/L (14-36); SGPT/ALT 31 U/L (0-35); SODIUM 135 mmol/L (137-145); Total Protein 4.5 g/dL (6.3-8.2)
[2017-12-22] MEDS: Protonix 40MG Tablet PO SCH ×2 (09:22→21:19)
[2017-12-22] MEDS: Acidophilus TABLET PO SCH (09:22)
[2017-12-22] MEDS: Vitamin B-12 500 MCG PO SCH ×2 (09:23→21:18)
[2017-12-22] MEDS: Vitamin B-6 (Pyridoxine) 100 MG PO SCH ×2 (09:23→21:18)
[2017-12-22] MEDS: Vitamin C 500 MG PO SCH ×2 (09:24→21:19)
[2017-12-22] MEDS: Mylicon 80MG PO PRN (09:29)
[2017-12-22] MEDS: Lomotil PO PRN (09:29)
[2017-12-22] MEDS ORDERED: Lasix 40 MG/4 ML IV ONE (10:14)
[2017-12-22] MEDS ORDERED: THERAGRAN MULTIVITAMIN PO ONE (10:23)
[2017-12-22] MEDS ORDERED: VITAMIN D2 PO SCH (10:30)
--- NOTE | 2017-12-22 10:32 | PCM.NOTE ---
Date and Time: 12/22/17 1026 Subjective Assessment: Patient reports she feels better this AM and has not had diarrhea since yesterday. She reports she feels less swollen after receiving lasix last night and can move her legs better and reach her back better. She would like to try a more regular diet. She reports the sore on her right knee is chronic. She states she is still too swollen to wear her prosthesis on her right leg. She denies any right upper quadrant pain or abdominal pain. She reports hx of bariatric surgery. She is agreeable to having an HIV test done. - Review of Systems Constitutional: Weakness Eyes: No Symptoms Ears, Nose, & Throat: No Symptoms Respiratory: No Symptoms Cardiac: No Symptoms Abdominal/Gastrointestinal: Other (swelling in her abdomen; occasional right lower quadrant pain but not recently.), No Nausea, No Vomiting, No Diarrhea, No Constipation Genitourinary Symptoms: Incontinence Musculoskeletal: Other (swelling in her right stump and left leg) Skin: Other (sore on right knee (chronic)) Objective Exam General Appearance: no apparent distress, alert, other (smiling, talkative, swelling around eyes) Neurologic Exam: alert, cooperative, normal mood/affect Skin Exam: normal color, warm, dry, other (1 x 1 cm ulcer on right knee, no induration, no drainage) Respiratory Exam: normal breath sounds, lungs clear, No crackles/rales, No rhonchi, No wheezing Cardiovascular Exam: regular rate/rhythm, normal heart sounds, No murmur, No friction rub, No gallop Gastrointestinal/Abdomen Exam: soft, other (hypoactive bowel sounds), No tenderness, No distention, No mass, No guarding OBJECTIVE DATA Vital Signs: Vital Signs - 24 hr Temp Pulse Resp BP Pulse Ox 12/22/17 08:00 16 12/22/17 07:19 98.5 F 95 H 16 127/71 96 12/22/17 04:05 98.3 F 101 H 18 130/73 97 12/22/17 04:00 18 12/22/17 00:00 18 12/21/17 23:49 98.7 F 105 H 18 132/87 97 12/21/17 20:15 18 12/21/17 19:41 98.3 F 96 H 18 164/88 99 12/21/17 16:00 98 F 99 H 20 151/86 96 12/21/17 12:00 98.4 F 98 H 18 132/74 96 Pain Assessment - Last Documented Pain Intensity 5 Pain Scale Used 0-10 Pain Scale Intake and Output: Intake & Output 12/20/17 12/21/17 12/22/17 12/23/17 06:59 06:59 06:59 06:59 Intake Total 2869 3406 760 240 Output Total 600 1100 200 Balance 2269 2306 560 240 Weight 81.8 kg 84.4 kg 87.2 kg Lab Results: Accuchecks Date 12/22/17 Date 12/22/17 Date 12/22/17 Date 12/21/17 Time 04:00 Time 00:00 Time 20:10 Accucheck Value: 159 Accucheck Value: 88 Accucheck Value: 73 Accucheck Value: 106 Accucheck Value: 97 Lab Results-Last 24 Hours 12/19/17 12/21/17 12/21/17 Range/Units 06:30 11:00 11:00 WBC 14.1 H (4.0-10.5) K/mm3 RBC 3.44 L (4.1-5.4) M/mm3 Hgb 10.0 L (12.0-16.0) gm/dl Hct 30.1 L (35-47) % MCV 87.5 (78-100) fl MCH 29.0 (26-32) pg MCHC 33.2 (32-36) g/dl RDW 14.3 H (11.5-14.0) % Plt Count 585 H (150-450) K/mm3 MPV 9.8 H (6-9.5) fl Gran % 62.7 (36.0-66.0) % Eos # (Auto) 0.30 (0-0.5) Absolute Lymphs (auto) 3.77 (1.0-4.6) Absolute Monos (auto) 1.14 (0.0-1.3) Lymphocytes % 26.8 (24.0-44.0) % Monocytes % 8.1 (0.0-12.0) % Eosinophils % 2.1 (0.00-5.0) % Basophils % 0.3 (0.0-0.4) % Absolute Granulocytes 8.80 H (1.4-6.9) Basophils # 0.04 (0-0.4) Sodium 138 (137-145) mmol/L Potassium 3.4 L (3.5-5.1) mmol/L Chloride 104 (98-107) mmol/L Carbon Dioxide 30 (22-30) mmol/L Anion Gap 7.9 (5-15) MEQ/L BUN 8 (7-17) mg/dL Creatinine 0.82 (0.52-1.04) mg/dL Estimated GFR > 60.0 ML/MIN Glucose 64 L (74-106) mg/dL Calcium 7.8 L (8.4-10.2) mg/dL Total Bilirubin 0.20 (0.2-1.3) mg/dL AST 32 (14-36) U/L ALT 36 H (0-35) U/L Alkaline Phosphatase 264 H (38-126) U/L Serum Total Protein 4.9 L (6.3-8.2) g/dL Albumin 1.8 L (3.5-5.0) g/dL TSH 3rd Generation (0.47-4.68) mIU/L Ur Collection Type Urine Color (YELLOW) Urine Appearance (CLEAR) Urine pH (5-6) Ur Specific Bolton (1.005-1.025) Urine Protein (Negative) Urine Ketones (NEGATIVE) Urine Blood (0-5) Brandon/ul Urine Nitrite (NEGATIVE) Urine Bilirubin (NEGATIVE) Urine Urobilinogen (0-1) mg/dL Ur Leukocyte Esterase (NEGATIVE) Urine Microscopic RBC (0-2) /HPF Urine Microscopic WBC (0-5) /HPF Ur Epithelial Cells (FEW) /HPF Urine Bacteria (NEGATIVE) /HPF Urine Mucus (NEGATIVE) /HPF Urine Glucose (NEGATIVE) mg/dL Cryptosporidium Ag Negative (Negative) Giardia Antigen Negative (Negative) O & P Source Feces Specimen Received 12/21/17 12/21/17 12/22/17 Range/Units 11:00 17:49 05:15 WBC 9.8 (4.0-10.5) K/mm3 RBC 3.19 L (4.1-5.4) M/mm3 Hgb 9.2 L (12.0-16.0) gm/dl Hct 28.1 L (35-47) % MCV 88.1 (78-100) fl MCH 28.8 (26-32) pg MCHC 32.7 (32-36) g/dl RDW 14.5 H (11.5-14.0) % Plt Count 552 H (150-450) K/mm3 MPV 10.1 H (6-9.5) fl Gran % 56.4 (36.0-66.0) % Eos # (Auto) 0.33 (0-0.5) Absolute Lymphs (auto) 3.11 (1.0-4.6) Absolute Monos (auto) 0.76 (0.0-1.3) Lymphocytes % 31.9 (24.0-44.0) % Monocytes % 7.8 (0.0-12.0) % Eosinophils % 3.4 (0.00-5.0) % Basophils % 0.5 (0.0-0.4) % Absolute Granulocytes 5.51 (1.4-6.9) Basophils # 0.05 (0-0.4) Sodium (137-145) mmol/L Potassium (3.5-5.1) mmol/L Chloride (98-107) mmol/L Carbon Dioxide (22-30) mmol/L Anion Gap (5-15) MEQ/L BUN (7-17) mg/dL Creatinine (0.52-1.04) mg/dL Estimated GFR ML/MIN Glucose (74-106) mg/dL Calcium (8.4-10.2) mg/dL Total Bilirubin (0.2-1.3) mg/dL AST (14-36) U/L ALT (0-35) U/L Alkaline Phosphatase (38-126) U/L Serum Total Protein (6.3-8.2) g/dL Albumin (3.5-5.0) g/dL TSH 3rd Generation 31.000 H (0.47-4.68) mIU/L Ur Collection Type VOID Urine Color YELLOW (YELLOW) Urine Appearance CLEAR (CLEAR) Urine pH 5.0 (5-6) Ur Specific Bolton 1.010 (1.005-1.025) Urine Protein 30 (Negative) Urine Ketones NEGATIVE (NEGATIVE) Urine Blood NEGATIVE (0-5) Brandon/ul Urine Nitrite NEGATIVE (NEGATIVE) Urine Bilirubin NEGATIVE (NEGATIVE) Urine Urobilinogen NORMAL (0-1) mg/dL Ur Leukocyte Esterase TRACE (NEGATIVE) Urine Microscopic RBC 2-5 (0-2) /HPF Urine Microscopic WBC 2-5 (0-5) /HPF Ur Epithelial Cells MODERATE (FEW) /HPF Urine Bacteria FEW (NEGATIVE) /HPF Urine Mucus SLIGHT (NEGATIVE) /HPF Urine Glucose NEGATIVE (NEGATIVE) mg/dL Cryptosporidium Ag (Negative) Giardia Antigen (Negative) O & P Source Specimen Received 12/21/17 1730 12/22/17 Range/Units 05:15 WBC (4.0-10.5) K/mm3 RBC (4.1-5.4) M/mm3 Hgb (12.0-16.0) gm/dl Hct (35-47) % MCV (78-100) fl MCH (26-32) pg MCHC (32-36) g/dl RDW (11.5-14.0) % Plt Count (150-450) K/mm3 MPV (6-9.5) fl Gran % (36.0-66.0) % Eos # (Auto) (0-0.5) Absolute Lymphs (auto) (1.0-4.6) Absolute Monos (auto) (0.0-1.3) Lymphocytes % (24.0-44.0) % Monocytes % (0.0-12.0) % Eosinophils % (0.00-5.0) % Basophils % (0.0-0.4) % Absolute Granulocytes (1.4-6.9) Basophils # (0-0.4) Sodium 135 L (137-145) mmol/L Potassium 3.5 (3.5-5.1) mmol/L Chloride 103 (98-107) mmol/L Carbon Dioxide 27 (22-30) mmol/L Anion Gap 8.6 (5-15) MEQ/L BUN 7 (7-17) mg/dL Creatinine 0.81 (0.52-1.04) mg/dL Estimated GFR > 60.0 ML/MIN Glucose 159 H (74-106) mg/dL Calcium 7.5 L (8.4-10.2) mg/dL Total Bilirubin 0.10 L (0.2-1.3) mg/dL AST 31 (14-36) U/L ALT 31 (0-35) U/L Alkaline Phosphatase 227 H (38-126) U/L Serum Total Protein 4.5 L (6.3-8.2) g/dL Albumin 1.6 L (3.5-5.0) g/dL TSH 3rd Generation (0.47-4.68) mIU/L Ur Collection Type Urine Color (YELLOW) Urine Appearance (CLEAR) Urine pH (5-6) Ur Specific Bolton (1.005-1.025) Urine Protein (Negative) Urine Ketones (NEGATIVE) Urine Blood (0-5) Brandon/ul Urine Nitrite (NEGATIVE) Urine Bilirubin (NEGATIVE) Urine Urobilinogen (0-1) mg/dL Ur Leukocyte Esterase (NEGATIVE) Urine Microscopic RBC (0-2) /HPF Urine Microscopic WBC (0-5) /HPF Ur Epithelial Cells (FEW) /HPF Urine Bacteria (NEGATIVE) /HPF Urine Mucus (NEGATIVE) /HPF Urine Glucose (NEGATIVE) mg/dL Cryptosporidium Ag (Negative) Giardia Antigen (Negative) O & P Source Specimen Received Radiology Exams: Radiology Procedures Category Date Time Status ABDOMEN AND PELVIS W CONTRAST [CT] Routine Exams 12/21/17 08:40 Completed ECHO W/2D AND DOPPLER [US] Routine Exams 12/21/17 14:25 Taken GALLBLADDER [US] Routine Exams 12/21/17 07:00 Completed Assessment/Plan (1) Colitis Current Visit: Yes Status: Acute Assessment & Plan: Improved with IV metronidazole. Pt did get a dose of lomotil this AM. continue to monitor. Stool cx in lab. O and P and c.diff neg and stool neg for blood. No fever. Stop IV fluids due to anasarca. Code(s): K52.9 - NONINFECTIVE GASTROENTERITIS AND COLITIS, UNSPECIFIED (2) Anasarca Current Visit: Yes Status: Acute Assessment & Plan: Start lasix 40 mg IV bid. Will add Kcl 10 meq po tid until Sunday to try to prevent hypokalemia. Nephrology consulted by Dr. Angela. She reports hx of swelling on and off. She did not know her albumin level has been low. She reports eating a high protein diet at home. May also be related to her hypothyroidism as her TSH is elevated to 31. Will check HIV, discussed with patient. Code(s): R60.1 - GENERALIZED EDEMA (3) Hypothyroid Current Visit: Yes Status: Acute Assessment & Plan: Increase levothyroxine from 175 mcg to 200 mcg. Code(s): E03.9 - HYPOTHYROIDISM, UNSPECIFIED (4) History of bariatric surgery Current Visit: Yes Status: Acute Assessment & Plan: Restart multivitamin and Vit D. Other vitamins already ordered. Code(s): Z98.84 - BARIATRIC SURGERY STATUS (5) Diabetes type 1, uncontrolled Current Visit: Yes Status: Acute Assessment & Plan: Her Toujeo was held last night and blood glucoses still in the 80's to 90's. Diet advanced today per patient request. She has low dose sliding scale coverage. Code(s): E10.65 - TYPE 1 DIABETES MELLITUS WITH HYPERGLYCEMIA
[2017-12-22] MEDS: NovoLOG Insulin SQ PRN ×2 (12:15→16:35)
[2017-12-22] MEDS: Klor Con 10 MEQ PO SCH ×2 (16:01→21:19)
[2017-12-22] MEDS: Lasix 40 MG/4 ML IV SCH (16:29)
[2017-12-22] MEDS: PATIENT OWN MEDICATION SQ SCH (21:20)
[2017-12-23] MEDS: NovoLOG Insulin SQ PRN ×3 (00:13→20:56)
[2017-12-23] MEDS: Mylicon 80MG PO PRN ×2 (01:44→20:53)
[2017-12-23] MEDS: Norco 10/325 MG Tablet PO PRN ×3 (03:26→20:10)
[2017-12-23] MEDS: Zofran 4 MG/2 ML VIAL IV PRN ×2 (03:34→09:29)
[2017-12-23 05:55] LABS: BASOPHIL % 0.3 % (0.0-0.4); Basophil (Absolute #) 0.03 (0-0.4); Eosinophil % 1.2 % (0.00-5.0); Eosinophil (Absolute #) 0.14 (0-0.5); Granulocyte Absolute (ANC) 8.11 (1.4-6.9); Granulocytes % 69.4 % (36.0-66.0); Hematocrit 26.4 % (35-47); Hemoglobin 8.7 gm/dl (12.0-16.0); Lymphocyte (Absolute #) 2.29 (1.0-4.6); Lymphocytes % 19.6 % (24.0-44.0); Mean Cell Volume 87.7 fl (78-100); Mean Corpuscular Hemoglobin 28.9 pg (26-32); Monocyte (Absolute #) 1.11 (0.0-1.3); Monocytes % 9.5 % (0.0-12.0); Platelet Count 505 K/mm3 (150-450); Red Blood Count 3.01 M/mm3 (4.1-5.4); Red Cell Distribution Width 14.4 % (11.5-14.0); White Blood Count 11.7 K/mm3 (4.0-10.5)
[2017-12-23] MEDS: FLAGYL 500 MG IVPB 500 MG/100 ML BAG IV SCH ×3 (06:01→17:37)
[2017-12-23] MEDS: SYNTHROID 100 MCG PO SCH (06:01)
[2017-12-23] MEDS: TYLENOL 325 MG PO PRN ×2 (06:09→15:48)
[2017-12-23 06:10] LABS: ANION GAP 7.7 MEQ/L (5-15); BLOOD UREA NITROGEN 7 mg/dL (7-17); CHLORIDE 104 mmol/L (98-107); Calcium 7.4 mg/dL (8.4-10.2); Carbon Dioxide 28 mmol/L (22-30); Creatinine 1 0.89 mg/dL (0.52-1.04); Glucose 183 mg/dL (74-106); Potassium 3.1 mmol/L (3.5-5.1); SODIUM 136 mmol/L (137-145)
[2017-12-23] MEDS ORDERED: Klor Con 10 MEQ PO ONE (10:29)
--- NOTE | 2017-12-23 11:06 | PCM.NOTE ---
Date and Time: 12/23/17 1102 Subjective Assessment: Patient reports that the swelling continues to improve and she was able to take a walk yesterday with her knee scooter. She had vomiting yesterday once she reports. Her nurses report vomiting and continued nausea. She had diarrhea that started again today. - Review of Systems Constitutional: No Symptoms Eyes: No Symptoms Ears, Nose, & Throat: No Symptoms Respiratory: No Symptoms Cardiac: No Symptoms Abdominal/Gastrointestinal: Nausea, Vomiting, Diarrhea Genitourinary Symptoms: No Symptoms Musculoskeletal: Other (generalized swelling in legs bilat) Objective Exam General Appearance: no apparent distress, alert, other (smiling, talkative) Neurologic Exam: alert, cooperative, normal mood/affect Skin Exam: normal color, warm, dry, other (sore on right knee covered with bandaid) Cardiovascular Exam: regular rate/rhythm, normal heart sounds, No murmur, No friction rub, No gallop Gastrointestinal/Abdomen Exam: soft, normal bowel sounds, No tenderness, No distention, No mass, No guarding Extremity Exam: other (+1 edema to mid pandey on left leg, swelling of right lower extremitiy with below the knee amputation) OBJECTIVE DATA Vital Signs: Vital Signs - 24 hr Temp Pulse Resp BP Pulse Ox 12/23/17 08:00 18 12/23/17 07:21 98.2 F 98 H 18 120/69 96 12/23/17 04:16 98.5 F 107 H 18 159/87 96 12/23/17 00:00 98.1 F 112 H 18 160/80 99 12/22/17 20:00 18 12/22/17 19:53 98.8 F 115 H 18 142/83 99 12/22/17 16:00 98.4 F 105 H 16 163/92 95 12/22/17 11:45 98.2 F 105 H 16 169/92 97 12/22/17 11:34 16 Pain Assessment - Last Documented Pain Intensity 7 Pain Scale Used 0-10 Pain Scale Intake and Output: Intake & Output 12/21/17 12/22/17 12/23/17 12/24/17 06:59 06:59 06:59 06:59 Intake Total 3406 760 1060 Output Total 1100 200 300 Balance 2306 560 760 Weight 84.4 kg 87.2 kg 84.7 kg Lab Results: Accuchecks Date 12/23/17 Date 12/23/17 Date 12/23/17 Date 12/22/17 Date 12/22/17 Date 12/22/17 Date 12/22/17 Time 07:30 Time 00:05 Time 20:13 Time 18:18 Accucheck Value: 183 Accucheck Value: 239 Accucheck Value: 296 Accucheck Value: 181 Accucheck Value: 172 Accucheck Value: 226 Accucheck Value: 276 Lab Results-Last 24 Hours 12/23/17 12/23/17 Range/Units 05:25 05:25 WBC 11.7 H (4.0-10.5) K/mm3 RBC 3.01 L (4.1-5.4) M/mm3 Hgb 8.7 L (12.0-16.0) gm/dl Hct 26.4 L (35-47) % MCV 87.7 (78-100) fl MCH 28.9 (26-32) pg MCHC 33.0 (32-36) g/dl RDW 14.4 H (11.5-14.0) % Plt Count 505 H (150-450) K/mm3 MPV 10.0 H (6-9.5) fl Gran % 69.4 H (36.0-66.0) % Eos # (Auto) 0.14 (0-0.5) Absolute Lymphs (auto) 2.29 (1.0-4.6) Absolute Monos (auto) 1.11 (0.0-1.3) Lymphocytes % 19.6 L (24.0-44.0) % Monocytes % 9.5 (0.0-12.0) % Eosinophils % 1.2 (0.00-5.0) % Basophils % 0.3 (0.0-0.4) % Absolute Granulocytes 8.11 H (1.4-6.9) Basophils # 0.03 (0-0.4) Sodium 136 L (137-145) mmol/L Potassium 3.1 L (3.5-5.1) mmol/L Chloride 104 (98-107) mmol/L Carbon Dioxide 28 (22-30) mmol/L Anion Gap 7.7 (5-15) MEQ/L BUN 7 (7-17) mg/dL Creatinine 0.89 (0.52-1.04) mg/dL Estimated GFR > 60.0 ML/MIN Glucose 183 H (74-106) mg/dL Calcium 7.4 L (8.4-10.2) mg/dL Radiology Exams: Radiology Procedures Category Date Time Status ECHO W/2D AND DOPPLER [US] Routine Exams 12/21/17 14:25 Taken Assessment/Plan (1) Colitis Current Visit: Yes Status: Acute Assessment & Plan: Continue metronidazole, stool culture pending, blood tests to screen for celiac disease ordered. She has immodium she can take as needed. Code(s): K52.9 - NONINFECTIVE GASTROENTERITIS AND COLITIS, UNSPECIFIED (2) Anasarca Current Visit: Yes Status: Acute Assessment & Plan: Improved with bid lasix. Nephrology consulted but have not seen patient yet. continue daily weights and accurate ins and outs. Code(s): R60.1 - GENERALIZED EDEMA (3) Hypothyroid Current Visit: Yes Status: Acute Code(s): E03.9 - HYPOTHYROIDISM, UNSPECIFIED (4) History of bariatric surgery Current Visit: Yes Status: Acute Code(s): Z98.84 - BARIATRIC SURGERY STATUS (5) Diabetes type 1, uncontrolled Current Visit: Yes Status: Acute Assessment & Plan: Blood glucoses not as low over past 24 hours. Continue insulin as ordered. Code(s): E10.65 - TYPE 1 DIABETES MELLITUS WITH HYPERGLYCEMIA (6) Hypokalemia Current Visit: Yes Status: Resolved Onset Date: ~12/20/17 Assessment & Plan: Will give 20 meq of potassium chloride now and she also has 10 meq tid ordered until Sunday morning. Code(s): E87.6 - HYPOKALEMIA
[2017-12-23] MEDS: Klor Con 10 MEQ PO SCH ×3 (11:24→20:53)
[2017-12-23] MEDS: Vitamin C 500 MG PO SCH ×2 (11:25→20:53)
[2017-12-23] MEDS: Protonix 40MG Tablet PO SCH ×2 (11:25→20:53)
[2017-12-23] MEDS: Acidophilus TABLET PO SCH (11:25)
[2017-12-23] MEDS: Lasix 40 MG/4 ML IV SCH ×2 (11:25→17:37)
[2017-12-23] MEDS: Lomotil PO PRN (11:25)
[2017-12-23] MEDS: Vitamin B-12 500 MCG PO SCH ×2 (11:26→20:55)
[2017-12-23] MEDS: THERAGRAN MULTIVITAMIN PO SCH (11:26)
[2017-12-23] MEDS: Vitamin B-6 (Pyridoxine) 100 MG PO SCH ×2 (11:26→20:55)
[2017-12-23] MEDS: NON-FORMULARY ITEM (Dextroamphetamine/Amphetamine [Adderall 20 Mg Tablet] 20 MG) PO SCH ×3 (11:27→20:53)
[2017-12-23] MEDS: PATIENT OWN MEDICATION SQ SCH (21:04)
[2017-12-24] MEDS: FLAGYL 500 MG IVPB 500 MG/100 ML BAG IV SCH ×4 (00:15→17:29)
[2017-12-24] MEDS: NovoLOG Insulin SQ PRN (00:31)
[2017-12-24] MEDS: Zofran 4 MG/2 ML VIAL IV PRN ×3 (01:39→16:58)
[2017-12-24] MEDS: Norco 10/325 MG Tablet PO PRN ×3 (02:04→10:34)
[2017-12-24] MEDS: SYNTHROID 100 MCG PO SCH (06:11)
[2017-12-24] MEDS: TYLENOL 325 MG PO PRN (06:18)
[2017-12-24] MEDS: Vitamin C 500 MG PO SCH ×2 (09:08→21:01)
[2017-12-24] MEDS: Lasix 40 MG/4 ML IV SCH ×2 (09:08→17:29)
[2017-12-24] MEDS: THERAGRAN MULTIVITAMIN PO SCH (09:09)
[2017-12-24] MEDS: Protonix 40MG Tablet PO SCH ×2 (09:09→21:01)
[2017-12-24] MEDS: Acidophilus TABLET PO SCH (09:09)
[2017-12-24] MEDS: Klor Con 10 MEQ PO SCH ×3 (09:09→21:01)
[2017-12-24] MEDS: Vitamin B-12 500 MCG PO SCH ×2 (09:11→21:05)
[2017-12-24] MEDS: Vitamin B-6 (Pyridoxine) 100 MG PO SCH ×2 (09:49→21:07)
[2017-12-24 09:57] LABS: HIV Antigen/Antibody Combo Non Reactive (Non Reactive)
[2017-12-24] MEDS: Mylicon 80MG PO PRN ×2 (10:01→21:01)
[2017-12-24] MEDS: Lomotil PO PRN ×2 (11:45→21:00)
[2017-12-24] MEDS: NON-FORMULARY ITEM (Dextroamphetamine/Amphetamine [Adderall 20 Mg Tablet] 20 MG) PO SCH ×3 (14:34→21:02)
--- NOTE | 2017-12-24 14:56 | PCM.DS ---
Discharge Summary Date of Admission: 12/20/17 08:48 Admitting Physician: BERNARD JAIN Consults: Consults on Case 12/21/17 14:25 Consult Nephrology ROUTINE Primary Care Provider: BERNARD JAIN Allergies Allergies levofloxacin [From Levaquin] Allergy (Verified 12/19/17 17:13) Hospital Summary - Hospital Course Hospital Course: Pt admitted with diarrhea and swelling, thought to be a medication reaction to doxycycline. She did stop the doxycycline 1 week prior to admission. She was found on CT abd/pelvis to have colitis and anasarca; started on IV flagyl and IV lasix (40 BID) with good results. She is feeling better but still having some swelling. CXR neg on admission. Gallbladder ultrasound with sludge. Echocardiogram pending. She will be sent home on 40mg po lasix once daily and 10mg K+ BID. She will f/u with nephrology outpatient (they were consulted but were not able to see the patient) and infectious disease outpatient. - Vitals & Intake/Output Vital Signs: Vital Signs Temperature 98.2 F 12/24/17 07:08 Pulse Rate 98 H 12/24/17 07:08 Respiratory Rate 18 12/24/17 07:08 Blood Pressure 125/76 12/24/17 07:08 O2 Sat by Pulse Oximetry 94 L 12/24/17 07:08 Intake & Output: Intake & Output 12/22/17 12/23/17 12/24/17 12/25/17 11:59 11:59 11:59 11:59 Intake Total 062 908 8038 360 Output Total 200 300 Balance 070 574 4081 360 Weight 87.2 kg 84.7 kg 84 kg 84 kg - Lab Result Diagrams: 12/23/17 05:25 12/23/17 14:00 Lab Results-Last 24 Hrs: Accuchecks Date 12/24/17 Date 12/24/17 Date 12/23/17 Time 04:00 Time 16:30 Accucheck Value: 132 Accucheck Value: 262 Accucheck Value: 238 Lab Results-Last 24 Hours 12/22/17 Range/Units 05:15 HIV Ag/Ab Combo Qual Non Reactive (Non Reactive) HIV Ag/Ab Interpret See Result Note: Micro Results-Entire Visit: Microbiology 12/19/17 06:30 Stool Culture - Preliminary Stool Accuchecks Date 12/24/17 Date 12/24/17 Date 12/23/17 Time 04:00 Time 16:30 Accucheck Value: 132 Accucheck Value: 262 Accucheck Value: 238 - Procedures and Test Procedures and Tests throughout Hospitalization: Therapy Orders & Screens 12/20/17 08:55 PT Eval & Treat ( Order) ROUTINE Reason for Eval:: weakness; has prosthesis. Make sure pt transferring well by self before d/c to home ( no d/c planned as yet) Diagnosis: HYPOKALEMIA 2.9 SENCONDARY TO DIARRHEA UNKNOWN CAUSE, LYME DISEASE , DMI Discharge Exam General Appearance: no apparent distress, alert, other (minimal facial edema) Neurologic Exam: oriented x 3, cooperative Skin Exam: normal color, warm, dry, No rash Ears, Nose, Throat Exam: moist mucous membranes Neck Exam: normal inspection Respiratory Exam: normal breath sounds, lungs clear Cardiovascular Exam: regular rate/rhythm, normal heart sounds, murmur (II/ sys murmur) Extremity Exam: other (R leg s/p BKA remote. Bilat LE wiht trace pitting edema. k Bilat UE with trace edema, L>R.) Final Diagnosis/Problem List - Final Discharge Diagnosis/Problem (1) Colitis Current Visit: Yes Status: Acute Assessment & Plan: Home on po flagyl for 7d. (2) Hypokalemia Current Visit: Yes Status: Resolved Onset Date: ~12/20/17 Assessment & Plan: Start potassium 10 mEq BID. (3) Lyme disease Current Visit: Yes Status: Chronic Assessment & Plan: Refer to ID outpatient. (4) Medication reaction Current Visit: Yes Status: Chronic (5) Weakness Current Visit: Yes Status: Acute Onset Date: ~12/20/17 Assessment & Plan: Improved (6) Diabetes mellitus Current Visit: Yes Status: Chronic (7) Below knee amputation status Current Visit: Yes Status: Chronic Assessment & Plan: stable (8) History of bariatric surgery Current Visit: Yes Status: Chronic (9) Hypothyroid Current Visit: Yes Status: Chronic Assessment & Plan: TSH was 13; may be due to acute illness. However, synthroid increased to 200mcg /d and will recheck TSH in 2 mo. - Discharge Disposition: Home, Self-Care Condition: Good Prescriptions: New Lactobacillus Acidophilus [Acidophilus TABLET] 1 tab PO DAILY #30 tablet Metronidazole [Flagyl] 500 mg PO TID #21 tablet Potassium Chloride 10 Meq Tab* [Klor Con 10 MEQ] 10 meq PO BID #60 tab Furosemide 40 mg [Lasix 40 MG] 40 mg PO DAILY #30 tablet Diphenoxylate HCl/Atropine [Lomotil] 1 tablet PO QID PRN PRN #30 tablet PRN Reason: Diarrhea Levothyroxine Sodium 100 Mcg [Synthroid 100 Mcg] 200 mcg PO DAILY #30 tablet Continue Omeprazole 20 MG [Prilosec 20 mg] 20 mg PO BID Multivitamin [Multivitamins] 1 each PO DAILY Ascorbic Acid 500 mg [Vitamin C 500 MG] 500 mg PO BID Insulin Aspart [Novolog Flexpen] 0 unit SQ .PRN Hydrocodone/APAP 10/325 mg [Martin 10/325 MG Tablet] 1 tab PO Q4H PRN PRN PRN Reason: Pain Ergocalciferol (Vitamin D2) [Vitamin D2] 50,000 unit PO Q7D Insulin Glargine,Hum.rec.anlog [Toujeo Solostar] 10 unit SQ HS Dextroamphetamine/Amphetamine [Adderall 20 mg Tablet] 20 mg PO TID Cyanocobalamin (Vitamin B-12) [Vitamin B-12] 5,000 mcg PO BID Pyridoxine HCl [Vitamin B-6] 250 mg PO BID Discontinued Furosemide 20 mg [Lasix 20 mg] 20 mg PO DAILY Levothyroxine Sodium [Synthroid] 175 mcg PO 0600 Follow up with: BERNARD JAIN [Primary Care Provider] - 1 Week
[2017-12-24] MEDS: PATIENT OWN MEDICATION SQ SCH (21:06)
[2017-12-25] MEDS: FLAGYL 500 MG IVPB 500 MG/100 ML BAG IV SCH ×3 (00:15→11:49)
[2017-12-25] MEDS: Mylicon 80MG PO PRN ×2 (00:23→09:07)
[2017-12-25] MEDS: Lomotil PO PRN ×2 (00:23→09:08)
[2017-12-25] MEDS: SYNTHROID 100 MCG PO SCH (06:25)
[2017-12-25] MEDS: TYLENOL 325 MG PO PRN (06:32)
[2017-12-25 07:44] VITALS: O2SAT 96
[2017-12-25 08:13] LABS: Granulocyte Absolute (ANC) 8.29 (1.4-6.9); Hematocrit 25.4 % (35-47); Hemoglobin 8.2 gm/dl (12.0-16.0); Mean Cell Volume 88.8 fl (78-100); Mean Corpuscular Hgb Concent. 32.3 g/dl (32-36); Mean Platelet Volume 9.9 fl (6-9.5); Platelet Count 489 K/mm3 (150-450); Red Blood Count 2.86 M/mm3 (4.1-5.4); Red Cell Distribution Width 14.5 % (11.5-14.0); White Blood Count 11.8 K/mm3 (4.0-10.5)
[2017-12-25] MEDS: NovoLOG Insulin SQ PRN (08:17)
[2017-12-25 08:26] LABS: Mean Corpuscular Hemoglobin 28.6 pg (26-32)
[2017-12-25 08:51] LABS: IGA QUANTITATIVE 388 mg/dL (70-400)
[2017-12-25] MEDS ORDERED: Norco 10/325 MG Tablet PO PRN (08:51)
[2017-12-25] MEDS: Lasix 40 MG/4 ML IV SCH (09:08)
[2017-12-25] MEDS: Klor Con 10 MEQ PO SCH (09:08)
[2017-12-25] MEDS: Protonix 40MG Tablet PO SCH (09:08)
[2017-12-25] MEDS: Acidophilus TABLET PO SCH (09:08)
[2017-12-25] MEDS: Vitamin B-12 500 MCG PO SCH (09:15)
[2017-12-25] MEDS: THERAGRAN MULTIVITAMIN PO SCH (09:15)
[2017-12-25] MEDS: Vitamin C 500 MG PO SCH (09:16)
[2017-12-25] MEDS: Vitamin B-6 (Pyridoxine) 100 MG PO SCH (09:16)
[2017-12-25] MEDS: Zofran 4 MG/2 ML VIAL IV PRN (09:35)
[2017-12-25 11:43] VITALS: BP 152/80; PULSE 100
[2017-12-25 12:27] LABS: Lymphocytes 25 % (24-44); Monocyte 1 % (0.0-12.0); Neutrophils 74 % (36.0-66.0); Platelet Estimate NORMAL (NORMAL); Total Cells Counted 100
[2017-12-25 12:30] LABS: ALBUMIN 1.5 g/dL (3.5-5.0); ALKALINE PHOSPHATASE 241 U/L (38-126); ANION GAP 6.4 MEQ/L (5-15); BLOOD UREA NITROGEN 8 mg/dL (7-17); CHLORIDE 104 mmol/L (98-107); Calcium 7.5 mg/dL (8.4-10.2); Carbon Dioxide 31 mmol/L (22-30); Creatinine 1 0.91 mg/dL (0.52-1.04); Glucose 235 mg/dL (74-106); Potassium 3.8 mmol/L (3.5-5.1); SGOT/AST 50 U/L (14-36); SGPT/ALT 33 U/L (0-35); SODIUM 137 mmol/L (137-145); Total Protein 4.1 g/dL (6.3-8.2)
[2017-12-25] MEDS: NON-FORMULARY ITEM (Dextroamphetamine/Amphetamine [Adderall 20 Mg Tablet] 20 MG) PO SCH ×2 (13:00→14:39)
--- NOTE | 2017-12-25 14:00 | PCM.DS ---
Discharge Summary Date of Admission: 12/20/17 08:48 Admitting Physician: BERNARD JAIN Consults: Consults on Case 12/21/17 14:25 Consult Nephrology ROUTINE Primary Care Provider: BERNARD JAIN Allergies Allergies levofloxacin [From Levaquin] Allergy (Verified 12/19/17 17:13) Hospital Summary - Hospital Course Hospital Course: Pt was admitted through ER with medication reaction; had started swelling diffusely and having diarrhea after taking doxycycline for an extended period of time for Lyme disease. She stopped the abx a week prior to admission but was still having symptoms. Stool studies were negative. She did not iimprove after 24+ hours on IV fluids so CT abd/pelvis was done revealing colitis, anasarca with some ascites and gallbladder sludge. GB u/s also + for GB sludge. Echocardiogram pending. Nephrology was consulted but was not able to see the patient. She is doing better on IV lasix, less swelling. Still unable to wear her prosthesis. Tolerating po but having some nausea. Still having some diarrhea; better with lomotil. She will be discharged to home on po lasix and potassium, po flagyl, po zofran, and po lomotil. Will have potassium rechecked in 2-3days. Will f/u outpatient with nephrology. - Vitals & Intake/Output Vital Signs: Vital Signs Temperature 98.6 F 12/25/17 11:42 Pulse Rate 100 H 12/25/17 11:42 Respiratory Rate 16 12/25/17 11:42 Blood Pressure 152/80 12/25/17 11:42 O2 Sat by Pulse Oximetry 96 12/25/17 11:42 Intake & Output: Intake & Output 12/23/17 12/24/17 12/25/17 12/26/17 11:59 11:59 11:59 11:59 Intake Total 820 1080 1560 240 Output Total 300 Balance 520 1080 1560 240 Weight 84.7 kg 84 kg 83.4 kg - Lab Result Diagrams: 12/25/17 08:00 12/25/17 08:00 Lab Results-Last 24 Hrs: Accuchecks Date 12/24/17 Accucheck Value: 136 Accucheck Value: 280 Accucheck Value: 187 Accucheck Value: 166 Lab Results-Last 24 Hours 12/23/17 12/25/17 12/25/17 Range/Units 05:25 08:00 08:00 WBC 11.8 H (4.0-10.5) K/mm3 RBC 2.86 L (4.1-5.4) M/mm3 Hgb 8.2 L (12.0-16.0) gm/dl Hct 25.4 L (35-47) % MCV 88.8 (78-100) fl MCH 28.6 (26-32) pg MCHC 32.3 (32-36) g/dl RDW 14.5 H (11.5-14.0) % Plt Count 489 H (150-450) K/mm3 MPV 9.9 H (6-9.5) fl Absolute Granulocytes 8.29 H (1.4-6.9) Segmented Neutrophils 74 H (36.0-66.0) % Lymphocytes (Manual) 25 (24-44) % Monocytes (Manual) 1 (0.0-12.0) % Platelet Estimate NORMAL (NORMAL) RBC Morphology NORMAL Sodium 137 (137-145) mmol/L Potassium 3.8 (3.5-5.1) mmol/L Chloride 104 (98-107) mmol/L Carbon Dioxide 31 H (22-30) mmol/L Anion Gap 6.4 (5-15) MEQ/L BUN 8 (7-17) mg/dL Creatinine 0.91 (0.52-1.04) mg/dL Estimated GFR > 60.0 ML/MIN Glucose 235 H (74-106) mg/dL Calcium 7.5 L (8.4-10.2) mg/dL Total Bilirubin 0.10 L (0.2-1.3) mg/dL AST 50 H (14-36) U/L ALT 33 (0-35) U/L Alkaline Phosphatase 241 H (38-126) U/L Serum Total Protein 4.1 L (6.3-8.2) g/dL Albumin 1.5 L (3.5-5.0) g/dL IgA 388 (70-400) mg/dL Tiss Transglutamin IgA Pending Micro Results-Entire Visit: Microbiology 12/19/17 06:30 Stool Culture - Final Stool Accuchecks Date 12/24/17 Accucheck Value: 136 Accucheck Value: 280 Accucheck Value: 187 Accucheck Value: 166 - Procedures and Test Procedures and Tests throughout Hospitalization: Therapy Orders & Screens 12/20/17 08:55 PT Eval & Treat ( Order) ROUTINE Reason for Eval:: weakness; has prosthesis. Make sure pt transferring well by self before d/c to home ( no d/c planned as yet) Diagnosis: HYPOKALEMIA 2.9 SENCONDARY TO DIARRHEA UNKNOWN CAUSE, LYME DISEASE , DMI Discharge Exam General Appearance: no apparent distress, alert, other (mild edema face) Neurologic Exam: oriented x 3, cooperative Skin Exam: normal color, warm, dry, No rash Ears, Nose, Throat Exam: moist mucous membranes Respiratory Exam: normal breath sounds, lungs clear, No crackles/rales, No rhonchi, No wheezing Cardiovascular Exam: regular rate/rhythm, normal heart sounds, No murmur Gastrointestinal/Abdomen Exam: soft, normal bowel sounds, No tenderness, No distention Extremity Exam: other (R leg s/p BKA LUE edematous) Final Diagnosis/Problem List - Final Discharge Diagnosis/Problem (1) Colitis Current Visit: Yes Status: Acute Assessment & Plan: Home on po flagyl. (2) Hypokalemia Current Visit: Yes Status: Resolved Onset Date: ~12/20/17 (3) Lyme disease Current Visit: Yes Status: Chronic Assessment & Plan: F/u with ID outpatient. (4) Medication reaction Current Visit: Yes Status: Chronic Assessment & Plan: still may be causing some of the diarrhea and the anasarca. (5) Weakness Current Visit: Yes Status: Acute Onset Date: ~12/20/17 (6) Diabetes mellitus Current Visit: Yes Status: Chronic (7) Below knee amputation status Current Visit: Yes Status: Chronic Assessment & Plan: Needs bedside commode as she cannot wear her prosthesis and has no way to the restroom. (8) History of bariatric surgery Current Visit: Yes Status: Chronic (9) Hypothyroid Current Visit: Yes Status: Chronic - Discharge Disposition: Home, Self-Care Condition: Good Prescriptions: New Lactobacillus Acidophilus [Acidophilus TABLET] 1 tab PO DAILY #30 tablet Metronidazole [Flagyl] 500 mg PO TID #21 tablet Potassium Chloride 10 Meq Tab* [Klor Con 10 MEQ] 10 meq PO BID #60 tab Furosemide 40 mg [Lasix 40 MG] 40 mg PO DAILY #30 tablet Diphenoxylate HCl/Atropine [Lomotil] 1 tablet PO QID PRN PRN #30 tablet PRN Reason: Diarrhea Levothyroxine Sodium 100 Mcg [Synthroid 100 Mcg] 200 mcg PO DAILY #30 tablet Ondansetron ODT 4 MG [Zofran Odt 4 mg] 4 mg PO Q4H PRN PRN #30 tab.rapdis PRN Reason: Nausea/Vomiting Continue Omeprazole 20 MG [Prilosec 20 mg] 20 mg PO BID Multivitamin [Multivitamins] 1 each PO DAILY Ascorbic Acid 500 mg [Vitamin C 500 MG] 500 mg PO BID Insulin Aspart [Novolog Flexpen] 0 unit SQ .PRN Hydrocodone/APAP 10/325 mg [[place] 10/325 MG Tablet] 1 tab PO Q4H PRN PRN PRN Reason: Pain Ergocalciferol (Vitamin D2) [Vitamin D2] 50,000 unit PO Q7D Insulin Glargine,Hum.rec.anlog [Toujeo Solostar] 10 unit SQ HS Dextroamphetamine/Amphetamine [Adderall 20 mg Tablet] 20 mg PO TID Cyanocobalamin (Vitamin B-12) [Vitamin B-12] 5,000 mcg PO BID Pyridoxine HCl [Vitamin B-6] 250 mg PO BID Discontinued Furosemide 20 mg [Lasix 20 mg] 20 mg PO DAILY Levothyroxine Sodium [Synthroid] 175 mcg PO 0600 Additional Instructions: GET LABS DRAWN ON Sunday12/26/17. Follow up with: SVEN MARTINEZ [CONSULTING PHYSICIAN] - 12/28/17 2:10 pm (AT [facility] [place] RAFAEL HAMM MD [COURTESY STAFF] - (OFFICE WILL CALL YOU WITH AN APPT) BERNARD JAIN [Primary Care Provider] - 12/31/17 9:30 am
[2017-12-25 14:39] LABS: T-TRANSGLUTAMINASE IGA <0.5 U/mL (0.0-14.9)
== END 2017-12-25 14:50 | disposition home or self-care (01) | DRG 392 ==
LOC: ED 13:37 → MED SURG 16:28 → OBSVTOIN 12-20 08:48
PROVIDERS: ADMIT Family Medicine; ATTEND Family Medicine
DX: K52.9 Noninfective gastroenteritis and colitis, unspecified (principal); A69.20 Lyme disease, unspecified; E87.6 Hypokalemia; T50.905A Adverse effect of unspecified drugs, medicaments and biological substances, initial encounter; R53.1 Weakness; E11.9 Type 2 diabetes mellitus without complications; Z79.4 Long term (current) use of insulin; Z89.519 Acquired absence of unspecified leg below knee; Z98.84 Bariatric surgery status; E03.9 Hypothyroidism, unspecified; Z79.899 Other long term (current) drug therapy
CPT/HCPCS: 36000; 36415; 71045; 74177; 76705; 80048; 80053; 81000; 82272; 82784; 83036; 83516; 83735; 84132; 84443; 85025; 85027; 86701; 86702; 87045; 87046; 87177; 87209; 87335; 87389; 87493; 93268; 93306; 96360; 96374; 99285; J1940; J2270; J2405; A9270-GY; G0378

== ENCOUNTER 2018-03-23 04:35 | Emergency (ER) | payer BC ==
[2018-03-23] MEDS ORDERED: Sodium Chloride 0.9% 1000 ML 1,000 ML ONE ×2 (05:30→10:36)
[2018-03-23] MEDS ORDERED: Sodium Chloride 0.9% 1000 ML 1,000 ML IV STA ×2 (05:41→09:47)
[2018-03-23] MEDS ORDERED: Zofran 4 MG/2 ML VIAL IV ONE (05:41)
--- NOTE | 2018-03-23 05:41 | ERPHSYRPT ---
- History of Present Illness Source: patient, family, EMS, correction records Exam Limitations: clinical condition Patient Subjective Stated Complaint: Altered level consciousness Triage Nursing Assessment: Patient brought into ED per EMS from [facility]. Patient has decreased level of consciousness. Patient usually A+O X 3, but currently only Alert to self. Patient keeps stating she hurts all over. Patient also has critcial hbg of 6.8, which was drawn yesterday and was due to have a blood transfusion today in the outpatient department. Patient noted to be pale and has 4+ pitting edema all over body. Lungs noted to be clear a/p pedro. Timing/Duration: day(s) (last fw days ) Severity: moderate (mod to severe) Modifying Factors: Improves With: nothing Associated Symptoms: loss of appetite, weakness, No nausea, No vomiting Hx Tetanus, Diphtheria Vaccination/Date Given: No Hx Influenza Vaccination/Date Given: Yes Hx Pneumococcal Vaccination/Date Given: No <LUIS PRICE - Last Filed: 03/23/18 07:06> <LACEY BORDEN - Last Filed: 03/23/18 09:57> - History of Present Illness Time Seen by Provider: 03/23/18 05:15 Physician History: 48 y/o diabetic white female with remote h/o of gastric bypass and right lower ext bka. pt is chronically anemic. pt underwent a revision of right bka stump site because of an inflamed/infected bursa per . she was sent to recover and wound care of bka site at [facility] 2 weeks ago. In the past few days pt has not been eating or drinking well. she has been becoming more confused. labs were drawn yesterday (03/23/18), and hemaglobin was found to be 6.8. pt was scheduled today for outpt blood transfusion of two units prbcs (O positive). however, she became more lethargic and confused this am. is unaware of any acute blood loss but did state since at [facility], pt has had dark , foul odored diarrhea intermittently for 2 weeks. she had been dx with colitis and tx with vancomycin. pt states she is not in pain now but states she has been complaining of hurting all over. (LUIS PRICE) Allergies/Adverse Reactions: levofloxacin [From Levaquin] Allergy (Verified 03/23/18 06:47) furosemide [From Lasix] Adverse Reaction (Verified 03/23/18 06:47) Home Medications: Ergocalciferol (Vitamin D2) [Vitamin D2] 50,000 unit PO Q7D 07/12/16 [History] Hydrocodone/APAP 10/325 mg [[place] 10/325 MG Tablet] 1 tab PO Q4H PRN PRN 07/12/16 [History] Insulin Aspart [Novolog Flexpen] 0 unit SQ .PRN 07/12/16 [History] Cholecalciferol (Vitamin D3) [Vitamin D3] 1 tab PO DAILY 03/23/18 [History] Insulin Glargine,Hum.rec.anlog [Toujeo Solostar] 8 units SQ HS 03/23/18 [History ] Levothyroxine Sodium 75 Mcg [Synthroid 75 Mcg] 75 mcg PO DAILY 03/23/18 [ History] PANTOPRAZOLE 40 mg Tablet [Protonix 40MG Tablet] 1 tab PO DAILY 03/23/18 [ History] Vits W-Ca,Fe,FA(<1Mg) [] 2 each PO DAILY 03/23/18 [History] Saccharomyces Boulardii [Digestive Probiotic] 1 cap PO BID 03/23/18 [History] - Review of Systems Constitutional: Lethargy, Weakness Eyes: No Symptoms Ears, Nose, & Throat: No Symptoms Respiratory: No Symptoms Cardiac: Edema Abdominal/Gastrointestinal: Melena, Appetite Changes Genitourinary Symptoms: No Symptoms Musculoskeletal: No Symptoms Skin: Other (right bka amp site wound vac) Neurological: Lethargy Psychological: Memory Loss (last few days) Hematologic/Lymphatic: Anemia (chronic) All Other Systems: Unable due to condition <LUIS PRICE - Last Filed: 03/23/18 07:06> - Past Medical History Pertinent Past Medical History: Yes Neurological History: No Pertinent History ENT History: No Pertinent History Cardiac History: Other Respiratory History: No Pertinent History Endocrine Medical History: Diabetes Type I, Hypothyroidism Musculoskeletal History: Arthritis, Fractures, Osteoarthritis GI Medical History: No Pertinent History History: No Pertinent History Psycho-Social History: Attention Deficit Disorder Female Reproductive Disorders: No Pertinent History Other Medical History: LYMES DISEASE, HEART MURMUR - Past Surgical History Past Surgical History: Yes Neuro Surgical History: No Pertinent History Cardiac: No Pertinent History Respiratory: No Pertinent History Gastrointestinal: No Pertinent History Genitourinary: No Pertinent History Musculoskeletal: Orthopedic Surgery Female Surgical History: Section, Tubal Ligation Other Surgical History: BARIATRIC SURGERY,FOOT SURGERY, RETINA SURGERY, amputation of right leg just below the knee. - Social History Smoking Status: Never smoker Exposure to second hand smoke: No Alcohol Use: None Drug Use: none Patient Lives Alone: No Significant Family History: diabetes - Female History Hx Now: No <LUIS PRICE - Last Filed: 03/23/18 07:06> - Physical Exam General Appearance: lethargy, obese Eye Exam: PERRL/EOMI, pale conjunctivae Ears, Nose, Throat Exam: dry mucous membranes Neck Exam: normal inspection, non-tender, supple, full range of motion Respiratory Exam: normal breath sounds, lungs clear, airway intact, No chest tenderness, No respiratory distress, No accessory muscle use, No rhonchi, No wheezing, No stridor Cardiovascular Exam: tachycardia Gastrointestinal/Abdomen Exam: soft, normal bowel sounds, tenderness (diffuse, mild), No guarding, No rebound Pelvic Exam: not done Rectal Exam: not done Back Exam: normal inspection, normal range of motion, No CVA tenderness, No vertebral tenderness Extremity Exam: pedal edema (left lower ext), swelling, other (right bka stump site with wound vac in place) Neurologic Exam: disoriented, confusion, other (lethargic) Skin Exam: pale Lymphatic Exam: No adenopathy SpO2 Interpretation: borderline oxygenation SpO2: 95 Oxygen Delivery: Room Air <LUIS PRICE - Last Filed: 03/23/18 07:06> <LACEY BORDEN - Last Filed: 03/23/18 09:57> - Nursing Vital Signs Nursing Vital Signs: Initial Vital Signs Temperature 97.6 F 03/23/18 04:54 Pulse Rate 114 H 03/23/18 04:54 Respiratory Rate 13 03/23/18 04:54 Blood Pressure 95/70 03/23/18 04:54 O2 Sat by Pulse Oximetry 95 03/23/18 04:54 Pain Scale Pain Intensity 8 - Course Nursing assessment & vital signs reviewed: Yes EKG Interpreted by Me: RATE (122), Sinus Tach, NORMAL AXIS <LUIS PRICE - Last Filed: 03/23/18 07:06> - CT Exams Head CT Interpretation: Tele-radiologist Report (per Dr Sánchez), No/Intracranial Hemorrhag, Other (generalized soft tissues edema) Abdomen/Pelvis CT Interpretation: Tele-radiologist Report (per Dr Sánchez), No appendicitis, Other (moderate left pleural effusion, small right pleural effusion; trace pericardial effusion; markedly distented gall bladder containing high density material.) <LACEY BORDEN - Last Filed: 03/23/18 09:57> Ordered Tests: Active Orders 24 hr Category Date Time Status Blender/Braze Applicator STAT Care 03/23/18 05:43 Active Catheter-Bethel Angel STAT Care 03/23/18 05:41 Active Catheter-Bethel Angel STAT Care 03/23/18 05:41 Active EKG-ER Only STAT Care 03/23/18 05:41 Active IV Insertion STAT Care 03/23/18 05:41 Active IV Insertion-2nd Peripheral STAT Care 03/23/18 05:41 Active Oxygen-ED Only NASAL CANNULA 2 lpm Care 03/23/18 05:41 Active ABDOMEN AND PELVIS W/0 CONTRAS [CT] Stat Exams 03/23/18 06:44 Taken HEAD WITHOUT CONTRAST [CT] Stat Exams 03/23/18 06:31 Taken ARTERIAL BLOOD GASES Stat Lab 03/23/18 06:30 Stop Req BLOOD CULTURE Stat Lab 03/23/18 06:30 Received CBC W DIFF Stat Lab 03/23/18 06:34 Completed CMP Stat Lab 03/23/18 06:34 Completed CULTURE,URINE Stat Lab 03/23/18 05:25 Received Lactic Acid Stat Lab 03/23/18 07:52 Ordered Lactic Acid Urgent Lab 03/23/18 05:41 Completed Manual Differential NC Stat Lab 03/23/18 06:34 Completed UA W/RFX UR CULTURE Stat Lab 03/23/18 05:25 Completed VENOUS BLOOD GAS Stat Lab 03/23/18 06:35 Completed Medication Summary Discontinued Medications Generic Name Dose Route Start Last Admin Trade Name Freq PRN Reason Stop Dose Admin Sodium Chloride Confirm 03/23/18 05:30 Sodium Chloride 0.9% 1000 Ml Administered 03/23/18 05:31 Dose 1,000 mls @ ud .ROUTE .STK-MED ONE Sodium Chloride 1,000 mls @ 999 mls/hr 03/23/18 05:41 03/23/18 06:00 Sodium Chloride 0.9% 1000 Ml IV 03/23/18 06:41 999 mls/hr .Q1H1M STA Administration Sodium Chloride Confirm 03/23/18 06:02 Sodium Chloride 0.9% 500 Ml Administered 03/23/18 06:03 Dose 500 mls @ ud IV .STK-MED ONE Ondansetron HCl 4 mg 03/23/18 05:41 03/23/18 06:00 Zofran 4 Mg/2 Ml Vial IV 03/23/18 05:42 4 mg STAT ONE Administration Ondansetron HCl Confirm 03/23/18 06:01 Zofran 4 Mg/2 Ml Vial Administered 03/23/18 06:02 Dose 4 mg .ROUTE .STK-MED ONE Lab/Rad Data: Laboratory Result Diagrams 03/23/18 06:34 03/23/18 06:34 Laboratory Results 03/23/18 03/23/18 03/23/18 Range/Units 09:00 06:35 06:34 WBC (4.0-10.5) K/mm3 RBC (4.1-5.4) M/mm3 Hgb (12.0-16.0) gm/dl Hct (35-47) % MCV (78-100) fl MCH (26-32) pg MCHC (32-36) g/dl RDW (11.5-14.0) % Plt Count (150-450) K/mm3 MPV (6-9.5) fl Segmented Neutrophils (36.0-66.0) % Band Neutrophils (0.0-2.0) % Lymphocytes (Manual) (24-44) % Metamyelocytes % Toxic Granulation Platelet Estimate (NORMAL) RBC Morphology Polychromasia Spherocytes Target Cells Schistocytes Morphology Comment pO2/FiO2 Ratio 21.0 % VBG pH 7.39 (7.32-7.42) VBG pCO2 at Pat Temp 25 L (42-55) mm/Hg VBG pO2 at Pat Temp 36 (25-40) mm/Hg VBG HCO3 15.1 L* (22-28) meq/L VBG O2 Sat (Juliana) 67.1 L (95-100) VBG Base Excess -8.8 L (-2.0-2.0) VBG Hemoglobin 7.8 L* VBG Carboxyhemoglobin 7.6 H* (0.0-6.9) % T HGB POC Potassium 4.5 (3.5-5.1) Sodium (137-145) mmol/L Potassium (3.5-5.1) mmol/L Chloride (98-107) mmol/L Carbon Dioxide (22-30) mmol/L Anion Gap (5-15) MEQ/L BUN (7-17) mg/dL Creatinine (0.52-1.04) mg/dL Estimated GFR ML/MIN Glucose (74-106) mg/dL Lactic Acid 6.6 H (0.4-2.0) Calcium (8.4-10.2) mg/dL Total Bilirubin (0.2-1.3) mg/dL AST (14-36) U/L ALT (0-35) U/L Alkaline Phosphatase (38-126) U/L Serum Total Protein (6.3-8.2) g/dL Albumin (3.5-5.0) g/dL Urine Color (YELLOW) Urine Appearance (CLEAR) Urine pH (5-6) Ur Specific [place] (1.005-1.025) Urine Protein (Negative) Urine Ketones (NEGATIVE) Urine Blood (0-5) Brandon/ul Urine Nitrite (NEGATIVE) Urine Bilirubin (NEGATIVE) Urine Urobilinogen (0-1) mg/dL Ur Leukocyte Esterase (NEGATIVE) Urine WBC (Auto) (0-5) /HPF Urine RBC (Auto) (0-2) /HPF U Hyaline Cast (Auto) (0-2) /LPF U Epithel Cells (Auto) (FEW) /HPF Urine Bacteria (Auto) (NEGATIVE) /HPF U Non-Squamous Epi Cells (FEW) /HPF Urine Mucus (Auto) (NEGATIVE) /HPF Urine Culture Reflexed (NO) Urine Glucose (NEGATIVE) mg/dL ABO Group O Rh Factor POSITIVE Antibody Screen NEGATIVE (NEGATIVE) Crossmatch (COMPATIBLE) 03/23/18 03/23/18 03/23/18 Range/Units 06:34 06:34 06:34 WBC (4.0-10.5) K/mm3 RBC (4.1-5.4) M/mm3 Hgb (12.0-16.0) gm/dl Hct (35-47) % MCV (78-100) fl MCH (26-32) pg MCHC (32-36) g/dl RDW (11.5-14.0) % Plt Count (150-450) K/mm3 MPV (6-9.5) fl Segmented Neutrophils (36.0-66.0) % Band Neutrophils (0.0-2.0) % Lymphocytes (Manual) (24-44) % Metamyelocytes % Toxic Granulation Platelet Estimate (NORMAL) RBC Morphology Polychromasia Spherocytes Target Cells Schistocytes Morphology Comment pO2/FiO2 Ratio % VBG pH (7.32-7.42) VBG pCO2 at Pat Temp (42-55) mm/Hg VBG pO2 at Pat Temp (25-40) mm/Hg VBG HCO3 (22-28) meq/L VBG O2 Sat (Juliana) (95-100) VBG Base Excess (-2.0-2.0) VBG Hemoglobin VBG Carboxyhemoglobin (0.0-6.9) % T HGB POC Potassium (3.5-5.1) Sodium 140 (137-145) mmol/L Potassium 4.7 (3.5-5.1) mmol/L Chloride 112 H (98-107) mmol/L Carbon Dioxide 17 L (22-30) mmol/L Anion Gap 16.1 H (5-15) MEQ/L BUN 35 H (7-17) mg/dL Creatinine 1.57 H (0.52-1.04) mg/dL Estimated GFR 37.5 ML/MIN Glucose 129 H (74-106) mg/dL Lactic Acid (0.4-2.0) Calcium 8.1 L (8.4-10.2) mg/dL Total Bilirubin 1.20 (0.2-1.3) mg/dL AST 21 (14-36) U/L ALT 27 (0-35) U/L Alkaline Phosphatase 322 H (38-126) U/L Serum Total Protein 4.6 L (6.3-8.2) g/dL Albumin 1.7 L (3.5-5.0) g/dL Urine Color (YELLOW) Urine Appearance (CLEAR) Urine pH (5-6) Ur Specific [place] (1.005-1.025) Urine Protein (Negative) Urine Ketones (NEGATIVE) Urine Blood (0-5) Brandon/ul Urine Nitrite (NEGATIVE) Urine Bilirubin (NEGATIVE) Urine Urobilinogen (0-1) mg/dL Ur Leukocyte Esterase (NEGATIVE) Urine WBC (Auto) (0-5) /HPF Urine RBC (Auto) (0-2) /HPF U Hyaline Cast (Auto) (0-2) /LPF U Epithel Cells (Auto) (FEW) /HPF Urine Bacteria (Auto) (NEGATIVE) /HPF U Non-Squamous Epi Cells (FEW) /HPF Urine Mucus (Auto) (NEGATIVE) /HPF Urine Culture Reflexed (NO) Urine Glucose (NEGATIVE) mg/dL ABO Group Rh Factor Antibody Screen (NEGATIVE) Crossmatch COMPATIBLE COMPATIBLE (COMPATIBLE) 03/23/18 03/23/18 03/23/18 Range/Units 06:34 05:41 05:25 WBC 18.1 H (4.0-10.5) K/mm3 RBC 2.81 L (4.1-5.4) M/mm3 Hgb 8.5 L (12.0-16.0) gm/dl Hct 27.3 L (35-47) % MCV 97.2 (78-100) fl MCH 30.2 (26-32) pg MCHC 31.1 L (32-36) g/dl RDW 21.5 H (11.5-14.0) % Plt Count 598 H (150-450) K/mm3 MPV 11.0 H (6-9.5) fl Segmented Neutrophils 68 H (36.0-66.0) % Band Neutrophils 23 H (0.0-2.0) % Lymphocytes (Manual) 7 L (24-44) % Metamyelocytes 2 % Toxic Granulation 1+ Platelet Estimate NORMAL (NORMAL) RBC Morphology ABNORMAL Polychromasia 1+ Spherocytes 1+ Target Cells 1+ Schistocytes 1+ Morphology Comment pO2/FiO2 Ratio % VBG pH (7.32-7.42) VBG pCO2 at Pat Temp (42-55) mm/Hg VBG pO2 at Pat Temp (25-40) mm/Hg VBG HCO3 (22-28) meq/L VBG O2 Sat (Juliana) (95-100) VBG Base Excess (-2.0-2.0) VBG Hemoglobin VBG Carboxyhemoglobin (0.0-6.9) % T HGB POC Potassium (3.5-5.1) Sodium (137-145) mmol/L Potassium (3.5-5.1) mmol/L Chloride (98-107) mmol/L Carbon Dioxide (22-30) mmol/L Anion Gap (5-15) MEQ/L BUN (7-17) mg/dL Creatinine (0.52-1.04) mg/dL Estimated GFR ML/MIN Glucose (74-106) mg/dL Lactic Acid 6.6 H (0.4-2.0) Calcium (8.4-10.2) mg/dL Total Bilirubin (0.2-1.3) mg/dL AST (14-36) U/L ALT (0-35) U/L Alkaline Phosphatase (38-126) U/L Serum Total Protein (6.3-8.2) g/dL Albumin (3.5-5.0) g/dL Urine Color OLIVER (YELLOW) Urine Appearance SLIGHTLY CLOUDY (CLEAR) Urine pH 5.0 (5-6) Ur Specific [place] 1.015 (1.005-1.025) Urine Protein NEGATIVE (Negative) Urine Ketones NEGATIVE (NEGATIVE) Urine Blood NEGATIVE (0-5) Brandon/ul Urine Nitrite NEGATIVE (NEGATIVE) Urine Bilirubin NEGATIVE (NEGATIVE) Urine Urobilinogen NEGATIVE (0-1) mg/dL Ur Leukocyte Esterase NEGATIVE (NEGATIVE) Urine WBC (Auto) 16-25 (0-5) /HPF Urine RBC (Auto) NONE (0-2) /HPF U Hyaline Cast (Auto) 6-10 (0-2) /LPF U Epithel Cells (Auto) RARE (FEW) /HPF Urine Bacteria (Auto) RARE (NEGATIVE) /HPF U Non-Squamous Epi Cells RARE (FEW) /HPF Urine Mucus (Auto) SLIGHT (NEGATIVE) /HPF Urine Culture Reflexed YES (NO) Urine Glucose NEGATIVE (NEGATIVE) mg/dL ABO Group Rh Factor Antibody Screen (NEGATIVE) Crossmatch (COMPATIBLE) <LUIS PRICE - Last Filed: 03/23/18 07:06> - Progress Progress: unchanged Discussed with : Julio César Counseled pt/family regarding: lab results, diagnosis, rad results <LACEY BORDEN - Last Filed: 03/23/18 09:57> - Progress Progress Note: 03/23/18 06:58 reviewed pt hx, condition with dr. borden. also reviewed the lab results returned. i also reviewed pending lab and xray results to check. he is aware pt would benefit from second peripheral line. he accepts pt in transfer. (LUIS PRICE) 03/23/18 07:41 Pt care discussed and care accepted from Dr Price at 07:00 03/23/18 08:46 I discussed the patient's care and condition with Dr. Angela who knows the patient quite well. We discussed the patient's severe soft tissue generalized edema, severe anemia, distention of gallbladder, and bilateral pleural effusions. Her recommendation was to have the patient transferred to [facility] in [place]. 03/23/18 09:51 The patient was given 1 unit of O+ packed red cells and 1 L of normal saline by IV per Dr. Price. The patient was given another liter of fluid by IV per or. I spoke with Dr. Aragon the hospitalist at [facility] who recommended that I talk with the ICU for transfer. I spoke with Kisha Osuna nurse practitioner at the ICU for Dr. Mirna Ruby who accepts the patient for transfer into ICU. (LACEY BORDEN) <LUIS PRICE - Last Filed: 03/23/18 07:06> - Departure Time of Disposition: 09:54 Departure Disposition: Transfer (Transfer to [facility] per Kisha Osuna [employer] for Dr Mirna Ruby.) Critical Care Time: No <LACEY BORDEN - Last Filed: 03/23/18 09:57> - Departure Clinical Impression: Anemia, Anasarca, Pleural effusion, Lactic acidosis Condition: Fair Referrals: TI MEJIA [Primary Care Provider] -
[2018-03-23 05:52] LABS: Lactic Acid 6.6 (0.4-2.0)
[2018-03-23] MEDS ORDERED: Zofran 4 MG/2 ML VIAL ONE (06:01)
[2018-03-23] MEDS ORDERED: Sodium Chloride 0.9% 500 ML 500 ML IV ONE (06:02)
[2018-03-23 06:34] LABS: Hematocrit 27.3 % (35-47); Mean Cell Volume 97.2 fl (78-100); Mean Corpuscular Hemoglobin 30.2 pg (26-32); Mean Corpuscular Hgb Concent. 31.1 g/dl (32-36); Platelet Count 598 K/mm3 (150-450); Red Blood Count 2.81 M/mm3 (4.1-5.4); Red Cell Distribution Width 21.5 % (11.5-14.0); White Blood Count 18.1 K/mm3 (4.0-10.5)
[2018-03-23 06:37] LABS: Hemoglobin 8.5 gm/dl (12.0-16.0)
[2018-03-23 06:40] LABS: VBG BASE EXCESS -8.8 (-2.0-2.0); VBG HCO3- 15.1 meq/L (22-28); VBG O2 SATURATION 67.1 (95-100); VBG POTASSIUM 4.5 (3.5-5.1); VBG pH 7.39 (7.32-7.42)
[2018-03-23 06:41] LABS: Appearance SLIGHTLY CLOUDY (CLEAR); Bilirubin NEGATIVE (NEGATIVE); Blood NEGATIVE Ery/ul (0-5); Glucose NEGATIVE (NEGATIVE); Ketones NEGATIVE (NEGATIVE); Leukocyte Esterase NEGATIVE (NEGATIVE); Nitrite NEGATIVE (NEGATIVE); Protein,Urine Dip NEGATIVE (Negative); Specific Gravity 1.015 (1.005-1.025); Urobilinogen NEGATIVE mg/dL (0-1)
[2018-03-23 06:41] LABS: VBG HEMOGLOBIN 7.8
[2018-03-23 06:42] LABS: VBG CARBOXYHEMOGLOBIN 7.6 % T HGB (0.0-6.9)
[2018-03-23 06:49] LABS: ALBUMIN 1.7 g/dL (3.5-5.0); ANION GAP 16.1 MEQ/L (5-15); BILIRUBIN,TOTAL 1.2 mg/dL (0.2-1.3); Calcium 8.1 mg/dL (8.4-10.2); Creatinine 1 1.57 mg/dL (0.52-1.04); Potassium 4.7 mmol/L (3.5-5.1); Total Protein 4.6 g/dL (6.3-8.2)
[2018-03-23 08:10] LABS: BAND 23 % (0.0-2.0); Lymphocytes 7 % (24-44); Metamyelocyte 2 %; Neutrophils 68 % (36.0-66.0); Polychromasia 1+; Schistocytes 1+; Spherocyte 1+; Targert Cells 1+; Total Cells Counted 100
[2018-03-23 08:13] LABS: Toxic Granulation 1+
[2018-03-23 08:16] LABS: Platelet Estimate NORMAL (NORMAL)
[2018-03-23 08:42] LABS: ABO TYPING O; Antibody Screen NEGATIVE (NEGATIVE); RH TYPING POSITIVE
[2018-03-23 09:05] LABS: Lactic Acid 6.6 (0.4-2.0)
[2018-03-23 11:19] VITALS: BP 111/69; PULSE 116; O2SAT 99
[2018-03-23] MEDS ORDERED: MORPHINE SULFATE 2 MG INJ IV ONE (11:31)
[2018-03-23] MEDS ORDERED: MORPHINE SULFATE 2 MG INJ ONE (11:33)
--- NOTE | 2018-03-23 16:04 | XRAY ---
Indication: Acute mental status change. Critical hemoglobin. Multiple contiguous axial images obtained through the head without contrast. Comparison: August 16, 2010. Several images slightly degraded by motion artifact. No acute intracranial hemorrhage, abnormal extra-axial fluid collection, or mass effect. Fourth ventricle is midline without hydrocephalus. Lynne-white matter differentiation preserved. Bony calvarium intact. New fluid leveling in both sphenoid sinuses and partial opacification of the right ethmoid sinus. Mastoid air cells are clear. Impression: 1. Motion artifact. 2. No acute intracranial abnormalities. 3. New paranasal sinus disease. Comment: Preliminary interpretation was made by C. No discrepancy.
--- NOTE | 2018-03-23 16:16 | XRAY ---
Indication: Acute mental status change. Critical hemoglobin. Pitting edema. Multiple contiguous axial images obtained through the abdomen and pelvis without contrast as ordered. Comparison: None Study slightly degraded due to beam artifact from patient's arms. Lung bases demonstrates mild/moderate bibasilar effusion, left greater than right with mild compressive atelectasis. Heart is not enlarged but small pericardial effusion/thickening. There is diffuse anasarca and moderate abdomen/pelvic ascites. No free air. Previous gastric bypass surgery. Noncontrasted stomach and bowel loops appear nonobstructed. There is mild diffuse colonic fecal debris throughout. Nagel balloon catheter tip is in the vaginal canal. Urinary bladder moderately distended with intraluminal air presumed from attempted catheterization. Gallbladder moderately distended without gallstones. Diffuse fatty liver. Sub-centimeter left mid renal angiomyolipoma. Remaining pancreas, spleen, adrenal glands, kidneys, ureters, and uterus appear unremarkable for noncontrast exam. Moderate scattered vascular calcifications. No AAA. Osseous structures intact. No ventral or inguinal hernias. Impression: 1. Diffuse anasarca, abdomen/pelvic ascites, and bibasilar pleural effusions without cardiomegaly. Rule out noncardiogenic etiologies. 2. Angel balloon tip in the vagina. Recommend repositioning. Urinary bladder intraluminal air presumed from attempted catheterization. 3. Fecal stasis without obstruction. 4. Fatty liver and small left renal angiomyolipoma. Comment: Preliminary interpretation was made by [facility] who reports Angel catheter in the bladder. Case was discussed with Dr. Vazquez in the ER at 1405 hrs. on March 23, 2018 who informed me patient was transferred to another institution.
== END 2018-03-23 12:09 | disposition short-term general hospital (02) ==
LOC: ED 04:35
DX: D64.9 Anemia, unspecified (principal); J90 Pleural effusion, not elsewhere classified; E87.2 Acidosis; R41.0 Disorientation, unspecified; R60.1 Generalized edema; R53.83 Other fatigue; R53.1 Weakness; K92.1 Melena; R41.3 Other amnesia; Z98.84 Bariatric surgery status; Z89.511 Acquired absence of right leg below knee; Z79.899 Other long term (current) drug therapy; K82.8 Other specified diseases of gallbladder
CPT/HCPCS: 36000; 36415; 36430; 51702; 70450; 74176; 80053; 81001; 82805; 82962; 83605; 84484; 85025; 86850; 86900; 86901; 86922; 87040; 87077; 87086; 87186; 93005; 93041; 96360; 96361; 96374; 96375; 99285; P9016; J2270; J2405